=== PATIENT | male | born 1950 | race Two or more races ===

== ENCOUNTER 2024-03-02 18:01 | Inpatient (IN) | payer MEDICARE, BC, SELFPAY ==
[2024-03-02] VITALS (36 sets, daily range): BP systolic 68–209; BP diastolic 10–94; PULSE 59–127; RESP 14–99; O2SAT 77–100; BMI 48.4
--- NOTE | 2024-03-02 18:17 | PC.NURSE ---
180 pt brought to room 3 in cardiac arrest. [facility] states its time for another epi, pt has received 2 does of epi from [facility] already. 180 no pulse, and epi is in. pt came in with no pulse. 180 right ac 20 g placed. 180 blood sugar 463 mg/dl, no pulse, epi given, pt intubated with 7.5 , 25 @ teeth
--- NOTE | 2024-03-02 18:22 | XR_ITS ---
Examination: AP chest single view Technique: AP portable supine chest single view Exam date and time: March 02, 2024 1534 hrs. Indications: Shortness of breath chest pain beginning today Findings: Mild enlargement cardiac contour Prominent vascular congestion Endotracheal tube tip 4 cm above jimmie Impression: Mild heart failure Orogastric tube in the stomach, tip below the level of the film Tracheal tube tip 4 cm above jimmie
--- NOTE | 2024-03-02 18:27 | PD.EDCPR ---
ED CPR RME/HPI General Chief Complaint: Cardiac Arrest/CPR Stated Complaint: STAT Time Seen by Provider: 03/02/24 18:21 Arrival date/time: 03/02/24 18:01 RME / HPI RME / HPI narrative: DR. HOFFMANN MAIN ED EVALUATION: 73 year old male with past medical history significant for diabetes type 2, hypertension, dementia, and CVA one month ago presents to the Emergency Department as as a code blue, unknown downtime. Upon ED arrival: patient had no signs of life, patient was pulseless, patient was immediately transferred to a [facility], and CPR was continued. No history or ROS obtainable by patient due to unresponsiveness. At about 1820 hours, ROSC. Per , she left to a a [employer] constitution party at about 1300 hours, patient was in restroom and stated he was fine and did not need any help. Per , this is common from the patient, being stubborn and taking care of himself so she thought he would be okay. The returned home at 1730 hours and patient was still in the bathroom. She found the patient face down, legs around the toilet, conscious but unable to get up. The called granddaughter to help her get the patient up but patient refused and wanted to get up on his own even though he could not. EMS was called and they assisted but shortly after the patient became pale, cyanotic and unresponsive. Patient coded, prompting the paramedics to initiate the ACLS. unsure if the patient fell or hit head, or how long the patient was on the floor. reported increasing difficulty in assisting him with activities of daily living, including toileting and cleaning, due to his body weight (>300 lbs) and her physical limitations. Related Data Home Medications ?Medication ?Instructions ?Recorded ?Confirmed insulin aspart U-100 100 unit/mL 80 ea subcut QDAY 11/12/21 03/02/24 (3 mL) subcutaneous pen (Novolog FlexPen U-100 Insulin aspart) pioglitazone 30 mg tablet 1 tab PO QDAY 11/12/21 03/02/24 aspirin 81 mg tablet 81 mg PO QDAY 11/15/21 03/02/24 atorvastatin 10 mg tablet 1 tab PO HS 11/15/21 03/02/24 dutasteride 0.5 mg capsule 0.5 mg PO DAILY 11/15/21 03/02/24 insulin glargine 100 unit/mL (3 See Rx Instructions .Route .COMPLEX 11/15/21 03/02/24 mL) subcutaneous pen (Basaglar KwikPen U-100 Insulin) metoprolol succinate 50 mg 1 tab PO DAILY 11/15/21 03/02/24 tablet,extended release 24 hr ramipril 10 mg tablet 10 mg PO DAILY 11/15/21 03/02/24 clopidogrel 75 mg tablet 75 mg PO 1XD 03/02/24 03/02/24 doxazosin 8 mg tablet 8 mg PO QPM 03/02/24 03/02/24 ergocalciferol (vitamin D2) 25,000 50,000 unit PO QWEEK 03/02/24 03/02/24 unit capsule Allergies Allergy/AdvReac Type Severity Reaction Status Date / Time No Known Allergies Allergy Verified 11/15/21 11:37 Review of Systems Review of Systems ROS Unobtainable: unobtainable due to mental status and unobtainable due to medical condition Past Medical History Past Medical History CARDIAC: Positive Cardiac Disorders and Hypertension ENDOCRINE: Positive Endocrine Disorders and Diabetes Mellitus Type 2 Social History SMOKING STATUS: Never smoker SUBSTANCE USE: does not use ALCOHOL: Never ED Exam Narrative Physical exam: GENERAL APPEARANCE: unresponsive, was a code and ROSC shortly after arrival; tachypneic, was intubated VITALS: All vitals were reviewed and the pulse ox is 99%, intubated. HEENT: Normocephalic, atraumatic; mucous membranes pink, moist; oropharynx clear NECK: Supple LUNGS: tachypneic, intubated HEART: tachycardic after ROSC ABDOMEN: non distended; normal BS; soft, no tenderness, no guarding, no rebound; no masses, no organomegaly, no hernia BACK: no CVA tenderness EXTREMITIES: atraumatic; no edema NEUROLOGIC: unobtainable PSYCHIATRIC: unobtainable SKIN: warm, dry, normal color; no rashes Course Course Course Narrative: 1806: Intubation time. 1819: ROSC Quality Measures none Orders Category Date Time Status Engineering Faculty NOW Care 03/02/24 18:22 Completed EKG (ED ONLY) *Do not use* NOW Care 03/02/24 18:[address] head/brain wo con Stat Exams 03/02/24 19:08 Completed EKG (ED Only) Stat Exams 03/02/24 18:22 Stop Req XR chest 1V portable Stat Exams 03/02/24 18:22 Completed Arterial Blood Gas Urgent Lab 03/02/24 19:00 Completed B-Type Natriuretic Peptide Stat Lab 03/02/24 18:09 Completed Blood Culture (Lab) Stat Lab 03/02/24 18:55 Completed CBC Stat Lab 03/02/24 18:09 Completed CK [Creatine Kinase] Stat Lab 03/02/24 21:23 Completed Comprehensive Metabolic Panel Stat Lab 03/02/24 18:09 Completed Lactate (Lactic Acid) Stat Lab 03/02/24 18:09 Completed Lipase Stat Lab 03/02/24 18:09 Completed Magnesium Stat Lab 03/02/24 18:09 Completed Partial Thromboplastin Time Stat Lab 03/02/24 18:09 Completed Phosphorous Stat Lab 03/02/24 21:23 Completed Procalcitonin Stat Lab 03/02/24 18:09 Completed Prothrombin Time with INR Stat Lab 03/02/24 18:09 Completed Sputum Culture and Gram Stain Stat Lab 03/03/24 02:48 Completed Troponin I Stat Lab 03/02/24 18:09 Completed Urinalysis Stat Lab 03/02/24 18:26 Completed Urine Culture Stat Lab 03/02/24 18:26 Completed Midazolam/Ns 100 mg Ivpb [Versed Pf Inj in Ns Premix] Med 03/02/24 18:32 Discontinued 100 mg in 100 ml IV 1 mg/hr Norepinephrine/D5W 8mg/250ml [Levophed in D5W 8mg/250ml Med 03/02/24 19:06 Discontinued ] 8 mg in 250 ml IV 0.05 mcg/kg/min Norepinephrine/NS 16mg/250ml [Levophed in NS 16mg/250ml Med 03/02/24 19:01 Discontinued ] 16 mg in 250 ml IV .STK-MED Norepinephrine/NS 16mg/250ml [Levophed in NS 16mg/250ml Med 03/02/24 19:06 Discontinued ] 16 mg in 250 ml IV 0.05 mcg/kg/min Pantoprazole Inj [Protonix Inj] Med 03/02/24 18:23 Discontinued 80 mg IV X1 ONE Pantoprazole/Ns 80Mg IV Premix [Protonix/NS 80mg IV Med 03/02/24 18:23 Discontinued Premix] 80 mg in 100 ml IV Q10H Vital Signs Vital signs: Vital Signs Pulse Rate 127 H 03/02/24 18:15 Respiratory Rate 17 03/02/24 18:15 Blood Pressure 138/61 H 03/02/24 18:15 Pulse Oximetry (%) 100 03/02/24 18:15 Oxygen Delivery Method Mechanical Ventilation 03/02/24 18:15 Procedures -ED Intubation Time out performed: Yes Laryngoscope: fiber optic video scope Assist Device Used: fiber optic device ET Tube Size: 7.5 ET Tube Uncuffed: No Tube Secured Depth (cm): 25 Tube Secured Location: other (gums) Patient Tolerated Procedure: well and no complications Intubation Complications: none Cardiac Arrest / CPR MDM Narrative MDM Narrative:: IHelen am scribing for and in the presence of Dr. Hoffmann. Patient data External records reviewed:: [facility] previous records (Reviewed colonoscopy note by Dr. Sheehan dated 11/15/21.) and EMS form Clinical information provided by:: EMS and spouse Social determinants that could affect healthcare access:: none Patient has the following chronic illnesses:: Hypertension, hyperlipidemia, and diabetes type 1. How is presenting disease/condition affected by chronic disease/condition?: exacerbated by Evaluation data The following diagnostics were reviewed and interpreted by me:: lab results and radiology exam(s) Lab and/or radiology exams considered but not ordered:: none Interpretation Summary: Procedure(s): CT head/brain wo con Accession Number(s): [id number] cc: Oswaldo Kaplan MD; Angelique Hoffmann MD; Alfred Mcneil MD~ Examination: CT brain head without contrast. 2-D sagittal coronal reconstructions Date and time of exam:March 02, 20242007 hrs. Indications: Altered mental status onset today CTDI: vol (mGy):8.01 DLP: (mGycm):1534 Technique: Multiple CT axial sections of the brain have been obtained, 5 mm slice thickness. Contrast has not been administered. 2-D sagittal, coronal reconstructions have been obtained Low dose protocols were performed. One or more of the following dose reduction techniques were used; automated exposure control, adjustment of the mA and/or KV according to patient size, use of iterative reconstruction technique. Findings: No significant ventricular enlargement. Intra-axial or extra-axial hemorrhage density is not seen. No mass effect or midline shift Basal cisterns are not remarkable. Fourth ventricle is midline. Cranial vault intact. Impression: Negative for acute hemorrhage, mass effect or midline shift Advise clinical correlation and follow-up accordingly Dictated By: Oswaldo Kaplan MD Procedure(s): XR chest 1V portable Accession Number(s): [id number] cc: Oswaldo Kaplan MD; Angelique Hoffmann MD; Alfred Mcneil MD~ Examination: AP chest single view Technique: AP portable supine chest single view Exam date and time: March 02, 2024 1534 hrs. Indications: Shortness of breath chest pain beginning today Findings: Mild enlargement cardiac contour Prominent vascular congestion Endotracheal tube tip 4 cm above jimmie Impression: Mild heart failure Orogastric tube in the stomach, tip below the level of the film Tracheal tube tip 4 cm above jimmie Dictated By: Oswaldo Kaplan MD Medications / Prescriptions Medications or Prescriptions considered but not ordered:: none Medication administrations:: Medication Administration History Discontinued Medications Acetaminophen (Acetaminophen 325 Mg Tablet) 650 mg PO Q6H PRN PRN Reason: Fever >100.4 - pain 1-3 Stop: 04/01/24 20:51 Artificial Tears (Artificial Tears 225 Drop/15 Ml Btl) 1 drop BOTH EYES Q4HR PRN PRN Reason: Dry eyes Stop: 04/03/24 11:05 Bumetanide (Bumetanide Inj 0.25 Mg/Ml Vial 4 Ml) 2 mg IVP NOW ONE Stop: 03/03/24 11:31 Last Admin: 03/03/24 11:41 Dose: 2 mg Documented By: AT Dextrose (Dextrose 50%-Water Inj 50 Ml Syringe) 25 ml IV Q15MIN PRN PRN Reason: BG 50-70 responsive npo pt Stop: 04/01/24 21:12 Dextrose (Dextrose 50%-Water Inj 50 Ml Syringe) 50 ml IV Q15MIN PRN PRN Reason: BG <50 OR BG <70 & pt unresponsive Stop: 04/01/24 21:12 Fentanyl Citrate (Fentanyl Cit Inj 50 Mcg/Ml Amp 2ml) 50 mcg IVP X1 ONE Stop: 03/04/24 12:21 Last Admin: 03/04/24 12:33 Dose: 50 mcg Documented By: AT Furosemide (Furosemide Inj 10 Mg/Ml 4ml Vial) 40 mg IVP X1 ONE Stop: 03/03/24 03:18 Last Admin: 03/03/24 03:24 Dose: 40 mg Documented By: CLT Glucagon (Glucagon Inj 1 Mg Vial) 1 mg IM Q15MIN PRN PRN Reason: BG <70, and no IV access Heparin Sodium (Porcine) (Heparin Sod Inj 5000 Unit/Ml Vial) 5,000 unit SC Q8HR VLAD Stop: 03/16/24 21:59 Hydrocortisone Sodium Succinate (Hydrocortisone Sod Succ Inj 100 Mg Vial) 50 mg IV Q6HR VLAD Stop: 04/02/24 11:59 Last Admin: 03/04/24 06:21 Dose: 50 mg Documented By: Admin: 03/03/24 23:36 Dose: 50 mg Documented By: Admin: 03/03/24 18:05 Dose: 50 mg Documented By: Admin: 03/03/24 11:19 Dose: 50 mg Documented By: AT Pantoprazole Sodium (Protonix/Ns 80mg Iv Premix) 80 mg in 100 mls @ 10 mls/hr IV Q10H VLAD Stop: 03/05/24 16:22 Last Admin: 03/04/24 11:11 Dose: Not Given Documented By: AT Non-Admin Reason: Discontinued Admin: 03/03/24 23:37 Dose: 10 mls/hr Documented By: Infusion: 03/03/24 23:23 Dose: Infused Documented By: Admin: 03/03/24 13:23 Dose: 10 mls/hr Documented By: Infusion: 03/03/24 13:23 Dose: Infused Documented By: Admin: 03/03/24 04:31 Dose: 10 mls/hr Documented By: Infusion: 03/03/24 04:31 Dose: Infused Documented By: Admin: 03/02/24 18:50 Dose: 10 mls/hr Documented By: TC Midazolam HCl (Versed Pf Inj In Ns Premix) 100 mg in 100 mls @ 1 mls/hr IV .Q24H PRN; Protocol PRN Reason: PER PROTOCOL Stop: 03/07/24 18:31 Last Titration: 03/03/24 00:00 Dose: 0 mg/hr, 0 mls/hr Documented By: Titration: 03/02/24 22:02 Dose: 10 mg/hr, 10 mls/hr Documented By: Titration: 03/02/24 21:20 Dose: 10 mg/hr, 10 mls/hr Documented By: Titration: 03/02/24 20:54 Dose: 3 mg/hr, 3 mls/hr Documented By: Titration: 03/02/24 20:00 Dose: 2 mg/hr, 2 mls/hr Documented By: Admin: 03/02/24 18:37 Dose: 1 mg/hr, 1 mls/hr Documented By: AM Co-signed By: NANY Norepinephrine/Dextrose (Levophed In D5w 8mg/250ml) 8 mg in 250 mls @ 0 mls/hr IV PRN; Protocol PRN Reason: PER PROTOCOL Stop: 04/01/24 19:05 Norepinephrine Bitartrate (Levophed In Ns 16mg/250ml) 16 mg in 250 mls @ 6.379 mls/hr IV .Q24H PRN; Protocol PRN Reason: PER protocol Stop: 04/01/24 19:05 Last Titration: 03/04/24 12:00 Dose: 0 mcg/kg/min, 0 mls/hr Documented By: Titration: 03/04/24 11:00 Dose: 0.1 mcg/kg/min, 12.757 mls/hr Documented By: Admin: 03/04/24 10:10 Dose: 0.1 mcg/kg/min, 12.757 mls/hr Documented By: Titration: 03/04/24 09:39 Dose: Infused Documented By: Titration: 03/04/24 09:00 Dose: 0.1 mcg/kg/min, 12.757 mls/hr Documented By: Titration: 03/04/24 08:47 Dose: 0.1 mcg/kg/min, 12.757 mls/hr Documented By: Titration: 03/04/24 08:00 Dose: 0.12 mcg/kg/min, 15.309 mls/hr Documented By: Titration: 03/04/24 07:00 Dose: 0.12 mcg/kg/min, 15.309 mls/hr Documented By: Titration: 03/04/24 06:00 Dose: 0.12 mcg/kg/min, 15.309 mls/hr Documented By: Titration: 03/04/24 05:01 Dose: 0.12 mcg/kg/min, 15.309 mls/hr Documented By: Titration: 03/04/24 05:00 Dose: 0.17 mcg/kg/min, 21.687 mls/hr Documented By: Titration: 03/04/24 04:00 Dose: 0.12 mcg/kg/min, 15.309 mls/hr Documented By: Titration: 03/04/24 03:00 Dose: 0.14 mcg/kg/min, 17.86 mls/hr Documented By: Titration: 03/04/24 02:00 Dose: 0.16 mcg/kg/min, 20.412 mls/hr Documented By: Titration: 03/04/24 01:00 Dose: 0.16 mcg/kg/min, 20.412 mls/hr Documented By: Titration: 03/04/24 00:00 Dose: 0.16 mcg/kg/min, 20.412 mls/hr Documented By: Titration: 03/03/24 22:00 Dose: 0.16 mcg/kg/min, 20.412 mls/hr Documented By: Titration: 03/03/24 21:00 Dose: 0.16 mcg/kg/min, 20.412 mls/hr Documented By: Titration: 03/03/24 20:00 Dose: 0.16 mcg/kg/min, 20.412 mls/hr Documented By: Admin: 03/03/24 19:35 Dose: 0.16 mcg/kg/min, 20.412 mls/hr Documented By: Titration: 03/03/24 19:35 Dose: Infused Documented By: Titration: 03/03/24 19:00 Dose: 0.16 mcg/kg/min, 20.412 mls/hr Documented By: Titration: 03/03/24 18:00 Dose: 0.16 mcg/kg/min, 20.412 mls/hr Documented By: Titration: 03/03/24 17:00 Dose: 0.16 mcg/kg/min, 20.412 mls/hr Documented By: Titration: 03/03/24 16:24 Dose: 0.18 mcg/kg/min, 22.963 mls/hr Documented By: Titration: 03/03/24 16:00 Dose: 0.2 mcg/kg/min, 25.515 mls/hr Documented By: Titration: 03/03/24 15:00 Dose: 0.2 mcg/kg/min, 25.515 mls/hr Documented By: Titration: 03/03/24 14:45 Dose: 0.22 mcg/kg/min, 28.066 mls/hr Documented By: Titration: 03/03/24 14:30 Dose: 0.24 mcg/kg/min, 30.618 mls/hr Documented By: Titration: 03/03/24 14:20 Dose: 0.26 mcg/kg/min, 33.169 mls/hr Documented By: Titration: 03/03/24 14:15 Dose: 0.28 mcg/kg/min, 35.72 mls/hr Documented By: Titration: 03/03/24 14:05 Dose: 0.3 mcg/kg/min, 38.272 mls/hr Documented By: Titration: 03/03/24 14:00 Dose: 0.32 mcg/kg/min, 40.823 mls/hr Documented By: Titration: 03/03/24 13:00 Dose: 0.34 mcg/kg/min, 43.375 mls/hr Documented By: Admin: 03/03/24 12:00 Dose: 0.36 mcg/kg/min, 45.926 mls/hr Documented By: Titration: 03/03/24 12:00 Dose: Infused Documented By: Titration: 03/03/24 11:30 Dose: 0.38 mcg/kg/min, 48.478 mls/hr Documented By: Titration: 03/03/24 11:00 Dose: 0.4 mcg/kg/min, 51.029 mls/hr Documented By: Titration: 03/03/24 10:58 Dose: 0.4 mcg/kg/min, 51.029 mls/hr Documented By: Titration: 03/03/24 10:00 Dose: 0.42 mcg/kg/min, 53.581 mls/hr Documented By: Titration: 03/03/24 09:52 Dose: 0.44 mcg/kg/min, 56.132 mls/hr Documented By: Titration: 03/03/24 09:34 Dose: 0.46 mcg/kg/min, 58.684 mls/hr Documented By: Titration: 03/03/24 09:00 Dose: 0.48 mcg/kg/min, 61.235 mls/hr Documented By: Admin: 03/03/24 08:00 Dose: 0.48 mcg/kg/min, 61.235 mls/hr Documented By: Titration: 03/03/24 08:00 Dose: Infused Documented By: Titration: 03/03/24 07:00 Dose: 0.48 mcg/kg/min, 61.235 mls/hr Documented By: Titration: 03/03/24 06:45 Dose: 0.46 mcg/kg/min, 58.684 mls/hr Documented By: Titration: 03/03/24 06:15 Dose: 0.44 mcg/kg/min, 56.132 mls/hr Documented By: Titration: 03/03/24 06:00 Dose: 0.42 mcg/kg/min, 53.581 mls/hr Documented By: Titration: 03/03/24 05:00 Dose: 0.4 mcg/kg/min, 51.029 mls/hr Documented By: Titration: 03/03/24 04:15 Dose: 0.4 mcg/kg/min, 51.029 mls/hr Documented By: Titration: 03/03/24 04:00 Dose: 0.42 mcg/kg/min, 53.581 mls/hr Documented By: Admin: 03/03/24 03:43 Dose: 0.44 mcg/kg/min, 56.132 mls/hr Documented By: Titration: 03/03/24 03:43 Dose: Infused Documented By: Titration: 03/03/24 03:00 Dose: 0.44 mcg/kg/min, 56.132 mls/hr Documented By: Titration: 03/03/24 02:30 Dose: 0.44 mcg/kg/min, 56.132 mls/hr Documented By: Titration: 03/03/24 02:15 Dose: 0.46 mcg/kg/min, 58.684 mls/hr Documented By: Titration: 03/03/24 02:00 Dose: 0.48 mcg/kg/min, 61.235 mls/hr Documented By: Titration: 03/03/24 01:00 Dose: 0.5 mcg/kg/min, 63.787 mls/hr Documented By: Titration: 03/03/24 00:00 Dose: 0.5 mcg/kg/min, 63.787 mls/hr Documented By: Admin: 03/02/24 23:55 Dose: 0.5 mcg/kg/min, 63.787 mls/hr Documented By: Titration: 03/02/24 23:55 Dose: Infused Documented By: Titration: 03/02/24 23:00 Dose: 0.5 mcg/kg/min, 63.787 mls/hr Documented By: Titration: 03/02/24 22:02 Dose: 0.5 mcg/kg/min, 63.787 mls/hr Documented By: Titration: 03/02/24 21:37 Dose: 0.5 mcg/kg/min, 63.787 mls/hr Documented By: Admin: 03/02/24 19:15 Dose: 0.25 mcg/kg/min, 31.893 mls/hr Documented By: TC Norepinephrine Bitartrate (Levophed In Ns 16mg/250ml) Confirm Administered Dose 16 mg in 250 mls @ ud IV .STK-MED ONE Stop: 03/02/24 19:02 Last Admin: 03/02/24 19:11 Dose: 63.8 mls/hr Documented By: AM Propofol (Diprivan Ivpb) 1,000 mg in 100 mls @ 4.082 mls/hr IV .Q24H PRN; Protocol PRN Reason: PER PROTOCOL Stop: 04/01/24 21:05 Last Titration: 03/03/24 07:00 Dose: Infused Documented By: Titration: 03/03/24 06:00 Dose: 35 mcg/kg/min, 28.576 mls/hr Documented By: Titration: 03/03/24 05:00 Dose: 35 mcg/kg/min, 28.576 mls/hr Documented By: Titration: 03/03/24 04:00 Dose: 35 mcg/kg/min, 28.576 mls/hr Documented By: Titration: 03/03/24 03:43 Dose: 35 mcg/kg/min, 28.576 mls/hr Documented By: Titration: 03/03/24 03:30 Dose: 30 mcg/kg/min, 24.494 mls/hr Documented By: Titration: 03/03/24 03:17 Dose: 30 mcg/kg/min, 24.494 mls/hr Documented By: Titration: 03/03/24 03:00 Dose: 25 mcg/kg/min, 20.412 mls/hr Documented By: Admin: 03/03/24 02:55 Dose: 25 mcg/kg/min, 20.412 mls/hr Documented By: Titration: 03/03/24 02:55 Dose: Infused Documented By: Titration: 03/03/24 02:00 Dose: 25 mcg/kg/min, 20.412 mls/hr Documented By: Titration: 03/03/24 01:00 Dose: 25 mcg/kg/min, 20.412 mls/hr Documented By: Titration: 03/03/24 00:00 Dose: 25 mcg/kg/min, 20.412 mls/hr Documented By: Admin: 03/02/24 21:09 Dose: 10 mcg/kg/min, 8.165 mls/hr Documented By: TC Co-signed By: DB Vancomycin HCl 2,000 mg/ (Sodium Chloride) 500 mls @ 150 mls/hr IV X1 ONE Stop: 03/03/24 00:29 Last Admin: 03/02/24 22:39 Dose: 150 mls/hr Documented By: CLT Piperacillin/Tazobactam/Dextrose (Zosyn) 3.375 gm in 50 mls @ 12.5 mls/hr IV Q8HR VLAD Stop: 03/10/24 06:29 Last Admin: 03/04/24 06:21 Dose: 12.5 mls/hr Documented By: Infusion: 03/04/24 02:06 Dose: Infused Documented By: Admin: 03/03/24 22:06 Dose: 12.5 mls/hr Documented By: Infusion: 03/03/24 17:22 Dose: Infused Documented By: Admin: 03/03/24 13:22 Dose: 12.5 mls/hr Documented By: Infusion: 03/03/24 10:29 Dose: Infused Documented By: Admin: 03/03/24 06:29 Dose: 12.5 mls/hr Documented By: CLT Lactated Ringer's (Lactated Ringers) 1,000 mls @ 999 mls/hr IV .Q1H1M ONE Stop: 03/02/24 22:16 Last Infusion: 03/03/24 01:00 Dose: Infused Documented By: Admin: 03/02/24 23:15 Dose: 999 mls/hr Documented By: CLT Piperacillin/Tazobactam/Dextrose (Zosyn) 3.375 gm in 50 mls @ 100 mls/hr IV X1 ONE Stop: 03/02/24 22:14 Last Admin: 03/02/24 22:42 Dose: 100 mls/hr Documented By: CLT Lactated Ringer's (Lactated Ringers) 1,000 mls @ 250 mls/hr IV .Q4H ONE Stop: 03/03/24 03:44 Last Infusion: 03/03/24 02:15 Dose: 0 mls/hr Documented By: Admin: 03/03/24 01:25 Dose: 250 mls/hr Documented By: CLT Fentanyl Citrate (Sublimaze Inj 2,500 Mcg/250 Ml Bag) 2,500 mcg in 250 mls @ 2.5 mls/hr IV .Q24H PRN; Protocol PRN Reason: PER PROTOCOL Stop: 03/07/24 23:37 Last Titration: 03/04/24 11:00 Dose: Infused Documented By: Titration: 03/04/24 10:00 Dose: 125 mcg/hr, 12.5 mls/hr Documented By: Titration: 03/04/24 09:00 Dose: 125 mcg/hr, 12.5 mls/hr Documented By: Titration: 03/04/24 08:00 Dose: 75 mcg/hr, 7.5 mls/hr Documented By: Titration: 03/04/24 07:00 Dose: 75 mcg/hr, 7.5 mls/hr Documented By: Titration: 03/04/24 06:00 Dose: 25 mcg/hr, 2.5 mls/hr Documented By: Titration: 03/04/24 05:36 Dose: 25 mcg/hr, 2.5 mls/hr Documented By: Titration: 03/04/24 05:00 Dose: 25 mcg/hr, 2.5 mls/hr Documented By: Titration: 03/04/24 04:00 Dose: 25 mcg/hr, 2.5 mls/hr Documented By: Titration: 03/04/24 03:00 Dose: 25 mcg/hr, 2.5 mls/hr Documented By: Titration: 03/04/24 02:00 Dose: 25 mcg/hr, 2.5 mls/hr Documented By: Titration: 03/04/24 01:00 Dose: 25 mcg/hr, 2.5 mls/hr Documented By: Titration: 03/04/24 00:00 Dose: 25 mcg/hr, 2.5 mls/hr Documented By: Titration: 03/03/24 23:00 Dose: 25 mcg/hr, 2.5 mls/hr Documented By: Titration: 03/03/24 22:00 Dose: 25 mcg/hr, 2.5 mls/hr Documented By: Titration: 03/03/24 21:00 Dose: 25 mcg/hr, 2.5 mls/hr Documented By: Titration: 03/03/24 20:00 Dose: 25 mcg/hr, 2.5 mls/hr Documented By: Titration: 03/03/24 19:00 Dose: 25 mcg/hr, 2.5 mls/hr Documented By: Titration: 03/03/24 18:00 Dose: 25 mcg/hr, 2.5 mls/hr Documented By: Titration: 03/03/24 17:03 Dose: 25 mcg/hr, 2.5 mls/hr Documented By: Titration: 03/03/24 10:58 Dose: 0 mcg/hr, 0 mls/hr Documented By: Titration: 03/03/24 10:31 Dose: 125 mcg/hr, 12.5 mls/hr Documented By: Titration: 03/03/24 10:00 Dose: 175 mcg/hr, 17.5 mls/hr Documented By: Titration: 03/03/24 09:00 Dose: 175 mcg/hr, 17.5 mls/hr Documented By: Titration: 03/03/24 08:00 Dose: 175 mcg/hr, 17.5 mls/hr Documented By: Titration: 03/03/24 07:00 Dose: 175 mcg/hr, 17.5 mls/hr Documented By: Titration: 03/03/24 06:00 Dose: 175 mcg/hr, 17.5 mls/hr Documented By: Titration: 03/03/24 05:00 Dose: 175 mcg/hr, 17.5 mls/hr Documented By: Titration: 03/03/24 04:00 Dose: 175 mcg/hr, 17.5 mls/hr Documented By: Titration: 03/03/24 03:00 Dose: 175 mcg/hr, 17.5 mls/hr Documented By: Titration: 03/03/24 02:45 Dose: 175 mcg/hr, 17.5 mls/hr Documented By: Titration: 03/03/24 02:00 Dose: 125 mcg/hr, 12.5 mls/hr Documented By: Titration: 03/03/24 01:00 Dose: 125 mcg/hr, 12.5 mls/hr Documented By: Titration: 03/03/24 00:00 Dose: 125 mcg/hr, 12.5 mls/hr Documented By: Admin: 03/02/24 23:56 Dose: 125 mcg/hr, 12.5 mls/hr Documented By: CLT Co-signed By: BB Midazolam HCl (Versed Pf Inj In Ns Premix) 100 mg in 100 mls @ 1 mls/hr IV .Q24H PRN; Protocol PRN Reason: PER PROTOCOL Stop: 03/07/24 18:31 Fentanyl Citrate (Sublimaze Inj 2,500 Mcg/250 Ml Bag) 2,500 mcg in 250 mls @ 2.5 mls/hr IV .Q24H PRN; Protocol PRN Reason: PER PROTOCOL Stop: 03/07/24 23:37 Last Titration: 03/04/24 12:54 Dose: 0 mcg/hr, 0 mls/hr Documented By: Titration: 03/04/24 12:19 Dose: 200 mcg/hr, 20 mls/hr Documented By: Titration: 03/04/24 12:00 Dose: 175 mcg/hr, 17.5 mls/hr Documented By: Admin: 03/04/24 11:17 Dose: 125 mcg/hr, 12.5 mls/hr Documented By: AT Co-signed By: AG Midazolam HCl (Versed Pf Inj In Ns Premix) 100 mg in 100 mls @ 1 mls/hr IV .Q24H PRN; Protocol PRN Reason: PER PROTOCOL Stop: 03/07/24 18:31 Propofol (Diprivan Ivpb) 1,000 mg in 100 mls @ 4.082 mls/hr IV .Q24H PRN; Protocol PRN Reason: PER PROTOCOL Stop: 04/02/24 00:59 Last Titration: 03/03/24 10:58 Dose: 0 mcg/kg/min, 0 mls/hr Documented By: Titration: 03/03/24 10:00 Dose: 15 mcg/kg/min, 12.247 mls/hr Documented By: Titration: 03/03/24 09:45 Dose: 20 mcg/kg/min, 16.329 mls/hr Documented By: Titration: 03/03/24 09:00 Dose: 25 mcg/kg/min, 20.412 mls/hr Documented By: Titration: 03/03/24 08:00 Dose: 30 mcg/kg/min, 24.494 mls/hr Documented By: Titration: 03/03/24 07:00 Dose: 35 mcg/kg/min, 28.576 mls/hr Documented By: Admin: 03/03/24 06:58 Dose: 35 mcg/kg/min, 28.576 mls/hr Documented By: AT Co-signed By: CLT Vasopressin/Sodium Chloride (Vasostrict/Ns Ivpb) 20 unit in 100 mls @ 9 mls/hr IV .Q11H7M PRN; Protocol PRN Reason: PER PROTOCOL Stop: 04/02/24 07:17 Last Titration: 03/04/24 12:00 Dose: Infused Documented By: Admin: 03/03/24 16:24 Dose: 0.03 unit/min, 9 mls/hr Documented By: Titration: 03/03/24 16:24 Dose: Infused Documented By: Admin: 03/03/24 07:30 Dose: 0.03 unit/min, 9 mls/hr Documented By: AT Vancomycin HCl (Vancomycin/Water 1250 Mg Ivpb) 250 mls @ 120 mls/hr IV DAILY@2200 VLAD Stop: 03/10/24 21:59 Last Admin: 03/03/24 22:06 Dose: 120 mls/hr Documented By: CLT Vancomycin/Sodium Chloride (Vancomycin/Ns 750 Mg Ivpb) 750 mg in 150 mls @ 120 mls/hr IV DAILY@2200 VLAD; Protocol Stop: 03/11/24 21:59 Fentanyl Citrate (Sublimaze Inj 2,500 Mcg/250 Ml Bag) 2,500 mcg in 250 mls @ 17.5 mls/hr IV .[id number] PRN; Protocol PRN Reason: Per Protocol Stop: 03/09/24 11:52 Insulin Human Lispro (Insulin Lispro (Admelog) 1 Unit/0.01 Ml Unit) 0 unit SC Q6HR VLAD; Protocol Stop: 04/02/24 00:00 Last Admin: 03/03/24 00:03 Dose: 5 unit Documented By: CLT Co-signed By: MARIA L Insulin Human Lispro (Insulin Lispro (Admelog) 1 Unit/0.01 Ml Unit) 0 unit SC Q6HR VLAD; Protocol Stop: 04/02/24 00:00 Last Admin: 03/04/24 06:19 Dose: 10 unit Documented By: CLT Co-signed By: JOIE Comments: Admin: 03/03/24 23:42 Dose: 8 unit Documented By: ALLAN Co-signed By: JOIE Comments: Admin: 03/03/24 18:06 Dose: 10 unit Documented By: AT Co-signed By: Admin: 03/03/24 11:19 Dose: 10 unit Documented By: AT Co-signed By: Admin: 03/03/24 06:12 Dose: 16 unit Documented By: CLT Co-signed By: JOIE Lorazepam (Lorazepam 2 Mg/Ml Vial) 1 mg IVP Q2HR [facility] Stop: 03/09/24 11:59 Last Admin: 03/04/24 11:16 Dose: 1 mg Documented By: AT Ondansetron HCl (Ondansetron Inj 2 Mg/Ml Inj 2 Ml) 4 mg IV Q6H PRN; Protocol PRN Reason: NAUSEA OR VOMITING Stop: 04/01/24 20:51 Ondansetron HCl (Ondansetron Odt 4 Mg Tabrap) 4 mg PO Q2HR PRN PRN Reason: NAUSEA OR VOMITING Stop: 04/03/24 11:06 Pantoprazole Sodium (Pantoprazole Inj 40 Mg Vial) 80 mg IV X1 ONE Stop: 03/02/24 18:24 Last Admin: 03/02/24 18:43 Dose: 80 mg Documented By: AM Pantoprazole Sodium (Pantoprazole Inj 40 Mg Vial) 40 mg IVP QDAY [facility] Stop: 04/02/24 08:59 Pharmacy Consult (Vancomycin Pharmacy To Dose 1 Each Each) 1 each IV QDAY PRN PRN Reason: CONSULT Stop: 04/02/24 08:59 Scopolamine (Scopolamine 1 Mg Tdsy) 1 mg TOP Q3D [facility] Stop: 04/03/24 11:14 Last Admin: 03/04/24 11:16 Dose: 1 mg Documented By: AT Sodium Polystyrene Sulfonate (Sod Polystyrene Sulfon Susp 15 Gm/60 Ml Btl) 30 gm PO X1 ONE Stop: 03/04/24 06:49 Last Admin: 03/04/24 07:03 Dose: 30 gm Documented By: AT see above Consultations Consultation(s) initiated? (list below): Yes Consultation #1 (Physician, Specialty, Details): Discussed test HPI, PMHx, lab, radiology results and/or management with hospitalist Dr. Lord. Will admit for further evaluation and management. Accepts patient for admission. Time: 20:40 Diagnosis Cardiac arrest differential diagnosis: acute massive pulmonary embolism, acute respiratory failure, acute myocardial infarction, cardiac arrest and sudden cardiac Most likely diagnosis given after review of the tests above:: Cardiac arrest Admission Indicated Admission indicated?: indicated Admission Request Was there a request for admission?: Yes Admission Attestation Admission request attestation: Discussed case with [] from Hospitalist service regarding admission. Discussed patients ED course, exam findings, labs, and radiology results. The Hospitalist [agrees,declines] to accept the patient for admission. Disposition Plan Disposition Plan: Admit Critical Care Time Critical Care Time Critical Care Time: Yes Total Critical Care Time (min.): 60 Attestation: The high probability of sudden, clinically significant deterioration in the patient?s condition required the highest level of my preparedness to intervene urgently. The services I provided to this patient were to treat and/or prevent clinically significant deterioration. Services included the following: chart data review, reviewing nursing notes and/or old charts, documentation time, bath design sales consultant collaboration regarding findings and treatment options, medication orders and management, direct patient care, vital sign assessments and ordering, interpreting and reviewing diagnostic studies and lab tests. Aggregate critical care time includes only time during which I was engaged in work directly related to the patient?s care, as described above, whether at bedside or elsewhere in the Emergency Department. It did not include time spent performing other reported procedures or the services of residents, students, nurses or physician assistants. Discharge Plan Plan Patient Disposition: Admit Acute Care w/in Hospital Problem List Clinical Impression: Cardiac arrest, Acute respiratory failure
[2024-03-02 18:31] LABS: Lactate (Lactic Acid) 11.2 mMol/L (0.4-2.0)
[2024-03-02 18:33] LABS: Basophils # (Auto) 0.1 Thou/mm3 (0.0-0.2); Basophils % (Auto) 0 % (0-2.5); Eosinophils % (Auto) 0 % (0-10); Hemoglobin 12.7 g/dL (13.5-16.0); Immature Granulocytes % (Auto) 2 % (0-0); Immature Granulocytes Auto 0.56 Thou/mm3 (0.00-0.00); Lymphocytes # (Auto) 2.8 Thou/mm3 (1.0-4.8); Lymphocytes % (Auto) 11 % (10-50); Mean Corpuscular HGB Conc 31.8 g/dl (31.0-37.0); Mean Corpuscular Hemoglobin 29.9 pg (25.0-35.0); Mean Corpuscular Volume 94 fL (80-100); Monocytes # (Auto) 2.1 Thou/mm3 (0.0-0.8); Monocytes % (Auto) 8 % (0-12); Neutrophils # (Auto) 20.2 Thou/mm3 (1.8-7.7); Neutrophils % (Auto) 79 % (37-80); Nucleated Red Blood Cell # 0.05 Thou/mm3 (0.00-0.00); Nucleated Red Blood Cell % 0 /100 WBC (0); Platelet Count 375 Thou/mm3 (140-440); RDW Standard Deviation 48.4 fL (35.1-43.9); Red Blood Count 4.25 Miln/mm3 (4.50-5.90); White Blood Count 25.7 Thou/mm3 (3.8-10.6)
[2024-03-02] MEDS: MIDAZOLAM/NS 100 MG IVPB 100 MG/100 ML BAG IV (18:37)
[2024-03-02 18:41] LABS: Collection Type, Urine Clean Catch
[2024-03-02] MEDS: PANTOPRAZOLE INJ 40 MG VIAL 80 MG IV (18:43)
[2024-03-02 18:47] LABS: Bilirubin,Urine Negative (Negative); Blood,Urine Negative (Negative); Clarity,Urine Clear (Clear/Hazy); Color,Urine Lt-Yellow (Lt Yel-Yel); Glucose, Urine Negative (Negative); Ketones,Urine Negative (Negative); Leukocyte Esterase,Urine Positive (Negative); Nitrite,Urine Negative (Negative); Protein,Urine 1+ (Neg - Trace); RBC,Urine 14 /hpf (0-3); Specific Gravity,Urine 1.015 (1.001-1.035); Squamous Epithelial Cell,Urine < 1 /hpf (0-5); Urobilinogen,Urine Negative mg/dL (0.0-1.0); WBC,Urine 108 /hpf (0-5)
[2024-03-02 18:48] LABS: INR 1.1 (0.9-1.3); Partial Thromboplastin Time 30.8 Seconds (22.0-36.0); Prothrombin Time 12.4 Seconds (9.0-12.2)
[2024-03-02 18:50] LABS: B-Type Natriuretic Peptide 73 pg/mL (0-100)
[2024-03-02] MEDS: PANTOPRAZOLE/NS 80MG IV PREMIX 80 MG/100 ML BAG 10 MG IV (18:50)
[2024-03-02 18:55] LABS: Alanine Aminotransferase 199 U/L (10-49); Albumin, Serum 4.3 gm/dL (3.4-4.8); Albumin/Globulin Ratio 1.6 (1.2-2.2); Alkaline Phosphatase 101 U/L (46-116); Anion Gap 19 (7-16); Aspartate Amino Transferase 296 U/L (0-34); BUN/Creatinine Ratio 12 Ratio (12-20); Bilirubin,Total 0.4 mg/dL (0.3-1.2); Blood Urea Nitrogen 26 mg/dL (9-23); Calcium 9.4 mg/dL (8.3-10.6); Calcium (Corrected) 9.4 mg/dL (8.5-10.1); Carbon Dioxide 16.2 mMol/L (20.0-31.0); Chloride 99 mMol/L (98-107); Creatinine (Component) 2.1 mg/dL (0.6-1.3); Globulin 2.7 gm/dL (2.3-3.5); Lipase 30 U/L (12-53); Magnesium 2.5 mg/dL (1.6-2.6); Osmolality,Calculated 292 (275-295); Potassium 4.1 mMol/L (3.4-5.1); Sodium 134 mMol/L (136-145); Troponin I 0.033 ng/mL (0.0-0.045); eGFR 32 See Note
[2024-03-02 18:56] LABS: Glucose 450 mg/dL (74-106)
[2024-03-02 18:59] LABS: Procalcitonin 0.16 ng/ml (0.0-0.49)
--- NOTE | 2024-03-02 18:59 | PC.NURSE ---
PANTOPRAZOLE WAS GIVEN IV PUSH AND DRIP WAS STARTED.
[2024-03-02 19:07] LABS: Allen Test Performed/OK; Base Excess -16 (-3-3); HCO3 15 mEq/L (20-26); Inspired Oxygen, FIO2 100 %; O2 Saturation 100 % (91-98); PCO2 56 mmHg (32.0-48.0); PO2 323 mmHg (83-108); Puncture Site Right Radial
[2024-03-02 19:08] LABS: pH, Arterial 7.04 (7.35-7.45)
--- NOTE | 2024-03-02 19:08 | XR_ITS ---
Examination: CT brain head without contrast. 2-D sagittal coronal reconstructions Date and time of exam:March 02, 20242007 hrs. Indications: Altered mental status onset today CTDI: vol (mGy):8.01 DLP: (mGycm):1534 Technique: Multiple CT axial sections of the brain have been obtained, 5 mm slice thickness. Contrast has not been administered. 2-D sagittal, coronal reconstructions have been obtained Low dose protocols were performed. One or more of the following dose reduction techniques were used; automated exposure control, adjustment of the mA and/or KV according to patient size, use of iterative reconstruction technique. Findings: No significant ventricular enlargement. Intra-axial or extra-axial hemorrhage density is not seen. No mass effect or midline shift Basal cisterns are not remarkable. Fourth ventricle is midline. Cranial vault intact. Impression: Negative for acute hemorrhage, mass effect or midline shift Advise clinical correlation and follow-up accordingly
[2024-03-02] MEDS: Norepinephrine/NS 16mg/250ml 16 MG/250 ML BAG 63.8 MG IV (19:11)
[2024-03-02] MEDS: Norepinephrine/NS 16mg/250ml 16 MG/250 ML BAG 31.893 MG IV (19:15)
--- NOTE | 2024-03-02 19:48 | PD.EVENT ---
Documentation for date of: 03/02/24 Event Note Event Note: The patient is a 73-year-old male with a medical history of hypertension, diabetes, dementia, and CVA one month ago, who presented to ER s/p cardiac arrest. On the morning of the presentation, at approximately 11:30, the patient informed his that he was going to use the bathroom. He remained in the bathroom for an extended period, and when his checked on him, he verbally responded, saying he would come out soon. His reported that he often refused assistance with cleaning up after using the bathroom, citing his stubbornness and preference to manage on his own. At approximately 13:00, his planned to leave for a [place] green party and reminded him to clean up after himself. He continued to refuse help, insisting that he would take care of everything. She left the house for the green party and jew, assuming he would be fine. Upon returning home at 17:30, she found the patient still in the bathroom. When she entered, she found him on the floor, face down, tangled in his walker, with his legs around the toilet. The patient was conscious but unable to get up. His called her granddaughter for assistance. Together, they attempted to lift him, but his weight and positioning made it impossible. Despite his inability to rise, the patient continued to insist that he would get up on his own. Paramedics were called to assist later. While on the scene, they managed to turn him to a face-up position, the patient became pale, cyanotic, and progressively less responsive. He exhibited signs of respiratory distress, prompting the paramedics to initiate the ACLS. The could not determine exactly when the patient fell or how long he had been on the floor. The patient has a history of progressive physical decline. Approximately one week prior, he transitioned from using a cane to a walker due to worsening right knee pain from a prior fall. His reported increasing difficulty in assisting him with activities of daily living, including toileting and cleaning, due to his body weight (>300 lbs) and her physical limitations. Over the past three days, the patient experienced increased falls and expressed awareness of his declining condition, acknowledging the eventual need for shelter placement. ER Course: The patient arrived at the ER at 18:02 in cardiac arrest, was intubated at 18:07 (per ER physician, a large amount of coffee ground blood was noted coming from the stomach during the procedure), and achieved ROSC at 18:11. Initial laboratory findings revealed a WBC of 25.7, glucose of 450, BUN of 26, creatinine of 2.1, lactic acid of 11.2, AST of 296, ALT of 199, and an elevated anion gap of 19. Troponin was <0.033, BNP was 73, and procalcitonin was 0.16. Levophed was initiated for low blood pressure. An orogastric tube was placed, yielding coffee ground emesis, and a Protonix drip was started. Imaging with a CT head was negative for intracranial bleeding. The patient is being admitted to the ICU for further management. Past Medical History: HTN, DM, CVA, dementia Past Surgical History: None Medications: Aspirin, lipitor, plavix, doxazosin, dutasteride, vit D2, insulin, metoprolol, pioglitzaone, ramipril Plan #Cardiac Arrest (Hypovolemic Shock/Dehydration/Sepsis/GI Bleed/Respiratory Distress) - Continue Levophed infusion to maintain mean arterial pressure > 65 mmHg - Manage mechanical ventilation - Start broad-spectrum antibiotics due to leukocytosis and elevated lactate, suggesting possible sepsis - Obtain blood and urine cultures - Perform serial neurological exams and consider EEG if altered mental status persists - Monitor renal function with daily BUN and creatinine levels - Ensure adequate hydration but avoid fluid overload - Continue Protonix drip for suspected gastrointestinal bleeding - Monitor H/H and transfuse as needed - Consult GI - Use sliding scale insulin to control hyperglycemia - Perform an echocardiogram to assess cardiac function and rule out significant structural abnrmalities. - Keep NPO - Order daily labs - Apply SCDs for DVT prophylaxis - DNR
--- NOTE | 2024-03-02 19:51 | PC.NURSE ---
16 azeri jackson cath, WITH 10 ML BALLOON, placed by Rose MOJICA AT 1829. 16 ENGLISH OG PLACED BY ROSE MOJICA AT 1830, AT 60 TO LIP. OG CONNECTED TO LIS WITH COFFEE GROUND EMESIS
--- NOTE | 2024-03-02 20:40 | PC.RT ---
took pt too and from CT. No complications
[2024-03-02] MEDS: PROPOFOL 1,000 MG IVPB 1,000 MG/100 ML VIAL 8.165 MG IV (21:09)
[2024-03-02 21:24] LABS: Reflex Lactate? Y
--- NOTE | 2024-03-02 21:45 | PD.RESHP ---
Documentation for date of: 03/02/24 [facility] History of Present Illness History of present illness: 73-year-old man with past medical history of diabetes mellitus type 2, TIA 1 month ago, hypertension, dementia, morbid obesity who came to the ED brought by ambulance due to cardiac arrest. History was taken from patient to patient was sedated and intubated. Patient stated that around 11:00 in the morning patient went to the use the bathroom on the noticed that the patient stayed for a long period of time so she went to check on him. Patient stated that he did not need any help at the time and that he will be out soon. Later in the afternoon the patient needed to leave the house to go to taoism before leaving check on him and he stated that he was doing fine. Around 1730 p.m. when she came back home patient was still inside the bathroom when he found him he was on the floor facedown, conscious and he was speaking. They tried to lift him up but they were unsuccessful due to his weight and position for which they called the paramedics for assistance. At the scene when the paramedics arrived and tried to turn him and reposition him he became pale, cyanotic and altered and they started CPR. Per patient she thinks the patient was on the floor since the morning but she stated that she really do not know for how long he was down. The stated that the patient overall state of health has been declining 1 week prior with recurrent falls and weakness and they wanted to admit him to a group home. The patient arrived to the emergency department at 18:02 with cardiac arrest and intubated at 18:07 and during the procedure per ER physician a large amount of coffee-ground emesis was noted coming from the stomach. ROSC was achieved 18:11 after 2 rounds of CPR. Initial vitals: BP 138/61 HR 127 RR 17 afebrile saturating 100% on mechanical ventilation FiO2 100% Pertinent labs: Leukocytosis 25.7, creatinine 2.1 BUN 26, hemoglobin 12.7, lactic acidosis 11.2 transaminitis AST 286 ALT 199, hyperglycemia 450, anion gap metabolic acidosis with anion gap of 19, Pro-Thien 0.16, creatinine kinase 03115. Pertinent imaging:Chest x-ray showed mild enlargement cardiac contour and prominent vascular congestion, CT head was negative for hemorrhage or midline shift. At the ED patient received: Levophed, propofol and Versed gtt. gastroenterology was consulted and patient was started on Protonix drip and patient will be admitted to the ICU for further treatment and management s/p cardiac arrest Past medical history: Diabetes mellitus type 2, TIA 1 month ago, hypertension, dementia, morbid obesity Past surgical history: None relevant Family history: None relevant Social history: No alcohol, no cigarette smoking no recreational drugs Travel history: None relevant Allergies: No known allergies Review of Systems Review of Systems ROS Unobtainable: unobtainable due to medical condition Exam Vital Signs Pulse Resp BP Pulse Ox O2 Del Method FiO2 94 36 H 124/78 99 Mechanical Ventilation 100 03/02/24 21:40 03/02/24 21:40 03/02/24 21:40 03/02/24 21:40 03/02/24 18:15 03/02/24 18:34 Narrative Exam General: Morbidly obese, sedated and mechanically ventilated. HEENT: Miotic, reactive to light, dry mucous membranes, ET tube in place. Neck: Supple, No masses, No adenopathy, carotid pulse 2+ bilaterally without bruits, No JVD. Chest: Symmetrical, atraumatic, and with equal expansion , Nontender on palpation no deformity and no crepitus. CVS: S1 and S2 present, Regular rate and rhythm, No murmurs, rubs or gallops perceived during auscultation. Lungs: Coarse sounds consistent with mechanical ventilation perceived during auscultation, no wheezing or crackles perceived during auscultation, no intercostal or subcostal retraction. Abdomen: Increased abdominal pannus, no tenderness to palpation, no guarding, no rebound, positive bowel sounds. Extremities: Venous stasis, 1+ edema on bilateral lower extremity , cold, cap refill less than 2, +2 dp equal bilaterally. Skin: Multiple skin wounds on bilateral knees and excoriations, abdominal skin abrasions, bilateral upper extremities ecchymosis and skin tearings. Neuro: Difficult to assess due to the patient is sedated and mechanically ventilated. Psych: Difficult to assess due to the patient is sedated and mechanically ventilated. Results: Labs 03/03/24 00:45 03/02/24 18:09 Labs: Short CBC 03/02/24 Range/Units 18:09 WBC 25.7 H (3.8-10.6) Thou/mm3 Hgb 12.7 L (13.5-16.0) g/dL Hct 40.0 L (41.0-53.0) % Plt Count 375 (140-440) Thou/mm3 BMP 03/02/24 18:09 Sodium 134 L Potassium 4.1 Chloride 99 Carbon Dioxide 16.2 L BUN 26 H Creatinine 2.1 H Glucose 450 H* Calcium 9.4 Cardiac Enzymes 03/02/24 Range/Units 18:09 Troponin I 0.033 (0.0-0.045) ng/mL Liver Function 03/02/24 Range/Units 18:09 Total Bilirubin 0.4 (0.3-1.2) mg/dL AST 296 H (0-34) U/L ALT 199 H (10-49) U/L Alkaline Phosphatase 101 (46-116) U/L Albumin 4.3 (3.4-4.8) gm/dL Urine 03/02/24 Range/Units 18:26 Urine Color Lt-Yellow (Lt Yel-Yel) Urine Clarity Clear (Clear/Hazy) Urine pH 6.0 (5.0-7.0) Ur Specific [place] 1.015 (1.001-1.035) Urine Protein 1+ A (Neg - Trace) Urine Glucose (UA) Negative (Negative) ABG Interpretation ABG results: 03/02/24 19:00 ABG pH 7.04 L* ABG pCO2 56 H ABG pO2 323 H ABG HCO3 15 L ABG O2 Saturation 100 H ABG Base Excess -16 L Quality Measures Quality Measures none Advance care planning discussed with:: spouse Medications Home Medications and Allergies Home Medications ?Medication ?Instructions ?Recorded ?Confirmed ?Type insulin aspart U-100 100 unit/mL 80 ea subcut QDAY 11/12/21 03/02/24 History (3 mL) subcutaneous pen (Novolog FlexPen U-100 Insulin aspart) pioglitazone 30 mg tablet 1 tab PO QDAY 11/12/21 03/02/24 History aspirin 81 mg tablet 81 mg PO QDAY 11/15/21 03/02/24 History atorvastatin 10 mg tablet 1 tab PO HS 11/15/21 03/02/24 History dutasteride 0.5 mg capsule 0.5 mg PO DAILY 11/15/21 03/02/24 History insulin glargine 100 unit/mL (3 See Rx Instructions .Route .COMPLEX 11/15/21 03/02/24 History mL) subcutaneous pen (Basaglar KwikPen U-100 Insulin) metoprolol succinate 50 mg 1 tab PO DAILY 11/15/21 03/02/24 History tablet,extended release 24 hr ramipril 10 mg tablet 10 mg PO DAILY 11/15/21 03/02/24 History clopidogrel 75 mg tablet 75 mg PO 1XD 03/02/24 03/02/24 History doxazosin 8 mg tablet 8 mg PO QPM 03/02/24 03/02/24 History ergocalciferol (vitamin D2) 25,000 50,000 unit PO QWEEK 03/02/24 03/02/24 History unit capsule Allergies Allergy/AdvReac Type Severity Reaction Status Date / Time No Known Allergies Allergy Verified 11/15/21 11:37 Visit Medications Acetaminophen (Acetaminophen 325 Mg Tablet) 650 mg PO Q6H PRN PRN Reason: Fever >100.4 - pain 1-3 Stop: 04/01/24 20:51 Dextrose (Dextrose 50%-Water Inj 50 Ml Syringe) 25 ml IV Q15MIN PRN PRN Reason: BG 50-70 responsive npo pt Stop: 04/01/24 21:12 Dextrose (Dextrose 50%-Water Inj 50 Ml Syringe) 50 ml IV Q15MIN PRN PRN Reason: BG <50 OR BG <70 & pt unresponsive Stop: 04/01/24 21:12 Glucagon (Glucagon Inj 1 Mg Vial) 1 mg IM Q15MIN PRN PRN Reason: BG <70, and no IV access Pantoprazole Sodium (Protonix/Ns 80mg Iv Premix) 80 mg in 100 mls @ 10 mls/hr IV Q10H VLAD Stop: 03/05/24 16:22 Last Admin: 03/02/24 18:50 Dose: 10 mls/hr Midazolam HCl (Versed Pf Inj In Ns Premix) 100 mg in 100 mls @ 1 mls/hr IV .Q24H PRN; Protocol PRN Reason: PER PROTOCOL Stop: 03/07/24 18:31 Last Titration: 03/02/24 21:20 Dose: 10 mg/hr, 10 mls/hr Norepinephrine Bitartrate (Levophed In Ns 16mg/250ml) 16 mg in 250 mls @ 6.379 mls/hr IV .Q24H PRN; Protocol PRN Reason: PER protocol Stop: 04/01/24 19:05 Last Titration: 03/02/24 21:37 Dose: 0.5 mcg/kg/min, 63.787 mls/hr Propofol (Diprivan Ivpb) 1,000 mg in 100 mls @ 4.082 mls/hr IV .Q24H PRN; Protocol PRN Reason: PER PROTOCOL Stop: 04/01/24 21:05 Last Admin: 03/02/24 21:09 Dose: 10 mcg/kg/min, 8.165 mls/hr Vancomycin HCl 2,000 mg/ (Sodium Chloride) 500 mls @ 150 mls/hr IV X1 ONE Stop: 03/03/24 00:29 Piperacillin/Tazobactam/Dextrose (Zosyn) 3.375 gm in 50 mls @ 100 mls/hr IV Q8HR VLAD Stop: 03/09/24 21:10 Lactated Ringer's (Lactated Ringers) 1,000 mls @ 999 mls/hr IV .Q1H1M ONE Stop: 03/02/24 22:16 Piperacillin/Tazobactam/Dextrose (Zosyn) 3.375 gm in 50 mls @ 100 mls/hr IV X1 ONE Stop: 03/02/24 22:14 Insulin Human Lispro (Insulin Lispro (Admelog) 1 Unit/0.01 Ml Unit) 0 unit SC Q6HR VLAD; Protocol Stop: 04/02/24 00:00 Ondansetron HCl (Ondansetron Inj 2 Mg/Ml Inj 2 Ml) 4 mg IV Q6H PRN; Protocol PRN Reason: NAUSEA OR VOMITING Stop: 04/01/24 20:51 Pharmacy Consult (Vancomycin Pharmacy To Dose 1 Each Each) 1 each IV QDAY [facility] Stop: 04/02/24 08:59 Discontinued Medications Heparin Sodium (Porcine) (Heparin Sod Inj 5000 Unit/Ml Vial) 5,000 unit SC Q8HR [facility] Stop: 03/16/24 21:59 Norepinephrine/Dextrose (Levophed In D5w 8mg/250ml) 8 mg in 250 mls @ 0 mls/hr IV PRN; Protocol PRN Reason: PER PROTOCOL Stop: 04/01/24 19:05 Pantoprazole Sodium (Pantoprazole Inj 40 Mg Vial) 80 mg IV X1 ONE Stop: 03/02/24 18:24 Last Admin: 03/02/24 18:43 Dose: 80 mg Pantoprazole Sodium (Pantoprazole Inj 40 Mg Vial) 40 mg IVP QDAY VLAD Stop: 04/02/24 08:59 Assessment & Plan Plan 73-year-old man with past medical history of diabetes mellitus type 2, TIA 1 month ago, hypertension, dementia, morbid obesity who came to the ED brought by ambulance due to cardiac arrest. History was taken from patient to patient was sedated and intubated. Patient stated that around 11:00 in the morning patient went to the use the bathroom on the noticed that the patient stayed for a long period of time so she went to check on him. Patient stated that he did not need any help at the time and that he will be out soon. Later in the afternoon the patient needed to leave the house to go to taoism before leaving check on him and he stated that he was doing fine. Around 1730 p.m. when she came back home patient was still inside the bathroom when he found him he was on the floor facedown, conscious and he was speaking. They tried to lift him up but they were unsuccessful due to his weight and position for which they called the paramedics for assistance. At the scene when the paramedics arrived and tried to turn him and reposition him he became pale, cyanotic and altered and they started CPR. Per patient she thinks the patient was on the floor since the morning but she stated that she really do not know for how long he was down. The stated that the patient overall state of health has been declining 1 week prior with recurrent falls and weakness and they wanted to admit him to a group home. The patient arrived to the emergency department at 18:02 with cardiac arrest and intubated at 18:07 and during the procedure per ER physician a large amount of coffee-ground emesis was noted coming from the stomach. ROSC was achieved 18:11 after 2 rounds of CPR. Initial vitals: BP 138/61 HR 127 RR 17 afebrile saturating 100% on mechanical ventilation FiO2 100% Pertinent labs: Leukocytosis 25.7, creatinine 2.1 BUN 26, hemoglobin 12.7, lactic acidosis 11.2 transaminitis AST 286 ALT 199, hyperglycemia 450, anion gap metabolic acidosis with anion gap of 19, Pro-Thien 0.16, creatinine kinase 55675. Pertinent imaging:Chest x-ray showed mild enlargement cardiac contour and prominent vascular congestion, CT head was negative for hemorrhage or midline shift. At the ED patient received: Levophed, propofol and Versed gtt. gastroenterology was consulted and patient was started on Protonix drip and patient will be admitted to the ICU for further treatment and management. MEDICAL TECHNOLOGIST: #Acute encephalopathy #Dementia Secondary to sedation Per patient he had an episode of TIA [address] head was negative for acute hemorrhage or midline shift ? Continue propofol and fentanyl gtt. with RASS of -3 ? Neurochecks every hour ? SAT daily CVS: #S/p cardiac arrest #Undifferentiated shock Possibly secondary to septic shock vs hypovolemic vs acute hypoxic respiratory failure Patient arrived to the emergency department at 18:02 with cardiac arrest and intubated at 18:07 ER physician noted a large amount of coffee-ground emesis coming from the stomach. ROSC was achieved 18:11 after 2 rounds of CPR. Per patient unknown downtime Troponins were negative ? Continue Levophed gtt. to keep MAP above 65 ? Echo pending ? Follow-up blood and urine cultures ? Follow-up CBC and CMP #History of hypertension ? Hold home medications in the setting of shock PULM: #Acute hypoxic respiratory failure In the setting of shock Chest x-ray showed mild enlargement cardiac contour and pulmonary vascular congestion ABG pH 7.04 pCO2 56 pO2 223 HCO3 15 O2 sat 100 base excess -16 Vent settings:AC/VC VT 450 RR 18 PEEP 5 FiO2 100 ? Repeat ABG ? Follow-up ABG daily ? Follow-up chest x-ray in the morning GI: #Acute GI bleed Possibly secondary to PUD vs medication induced? vs lower GI bleed vs esophageal varices? Patient take Plavix and aspirin daily Per ED physician gross amount of coffee-ground emesis was observed during intubation Gastroenterology was consulted, greatly appreciate recommendations - IV Protonix drip - Transfuse if hemoglobin less than 7 - Follow-up CBC - NPO now #Transaminitis In the setting of shock and s/p cardiac arrest AST 296 ALT 199 ? Follow-up CMP RENAL: #Anion gap metabolic acidosis #Lactic acidosis #KEEGAN In the setting of shock and s/p cardiac arrest Lactic acid 11.2 anion gap 19, bicarb 16.2 creatinine 2.1 BUN 26 ABG pH 7.04 pCO2 56 pO2 223 HCO3 15 O2 sat 100 base excess -16 Nephrology was consulted we greatly appreciate recomendations ? IV fluids LR 1 L x 1 ? Trend lactic acid every 3 hours ? Avoid nephrotoxic drugs ? Strict in and outs ? Renally dose medications ? Follow-up CMP ? Follow-up electrolytes and replete as necessary ENDO: #Diabetes mellitus type 2 On arrival patient was hyperglycemic 450 ? Hold home medications ? Sliding scale insulin ? Hypoglycemia protocol in place ? Follow-up A1c HEME/ONC: Stable ID: #Leukocytosis Possibly secondary to septic shock vs reactive? WBCs 25.7 UA showed pyuria and leukocyte esterase positive otherwise no bacteria less likely UTI Pro-Thien was negative, chest x-ray was negative for pneumonic infiltrates most likely vascular congestion ? Started IV vancomycin and Zosyn (03/02/ ? Follow-up blood and urine cultures ? Follow-up sputum Gram and cultures ? Follow-up CBC MSK: #Rhabdomyolysis In the setting [place] [address] ? IV fluids 1 L bolus LR x 1 ? Strict in and outs ? Follow-up creatinine kinase daily SKIN: #Multiple skin abrasions and excoriations ? Wound care FEN: N.p.o. Lines: Peripheral DVT prophylaxis: SCD GI prophylaxis: Protonix drip CODE STATUS: DNR Patient discussed with my attending Dr Pop Torres MD PGY-3 Disclaimer: Despite multiple revisions, due to the dictation software being used, the document bellow may not be free of grammatical errors including phonetic/typographic errors. However, this does not deter from our commitment to providing health care in the patient's best interest in mind. Attending Provider Attestation/Addendum Pt was evaluated and plan formulated together with the housestaff team. I have reviewed the residents note above and agree with most of its content. Please refer to the residents note for additional details.
[2024-03-02 21:52] LABS: Base Excess -11 (-3-3); HCO3 18 mEq/L (20-26); Inspired Oxygen, FIO2 100 %; O2 Saturation 86 % (91-98); PCO2 55 mmHg (32.0-48.0); PO2 64 mmHg (83-108)
[2024-03-02 22:10] LABS: Lactic Acid, 3 HR 7.2 mMol/L (0.4-2.0)
[2024-03-02 22:13] LABS: Allen Test Performed/OK; Puncture Site Right Radial
[2024-03-02 22:14] LABS: pH, Arterial 7.13 (7.35-7.45)
[2024-03-02 22:38] LABS: Phosphorous 8.3 mg/dL (2.4-5.1)
[2024-03-02] MEDS: Vancomycin Inj 2,000 MG in SODIUM CHLORIDE 0.9% 500 ML 500 ML 150 MG IV (22:39)
[2024-03-02] MEDS: PIPER/TAZO 3.375 GM 3.375 GM/50 ML BAG IV (22:42)
[2024-03-02 22:49] LABS: Creatine Kinase 17087 U/L (34-171)
[2024-03-02 22:53] LABS: Base Excess -10 (-3-3); HCO3 19 mEq/L (20-26); Inspired Oxygen, FIO2 100 %; O2 Saturation 86 % (91-98); PCO2 54 mmHg (32.0-48.0); PO2 62 mmHg (83-108)
[2024-03-02 22:54] LABS: Allen Test Performed/OK; Puncture Site Left Radial
[2024-03-02 22:55] LABS: pH, Arterial 7.16 (7.35-7.45)
[2024-03-02] MEDS: RINGERS LACTATED 1000 ML 1,000 ML 999 ML IV (23:15)
[2024-03-02] MEDS: Norepinephrine/NS 16mg/250ml 16 MG/250 ML BAG 63.787 MG IV (23:55)
[2024-03-02] MEDS: fentaNYL 2,500 MCG/250 ML BAG 2,500 MCG/250 ML BAG 12.5 MCG IV (23:56)
[2024-03-03] VITALS (112 sets, daily range): BP systolic 81–185; BP diastolic 47–100; PULSE 82–112; RESP 4–42; TEMP 36.1–37.7; O2SAT 88–99; BMI 50.8
[2024-03-03] MEDS: INSULIN LISPRO (AdmeLOG) 1 UNIT/0.01 ML UNIT SC ×5 (00:03→23:42)
[2024-03-03 01:07] LABS: Lactate (Lactic Acid) 5.5 mMol/L (0.4-2.0)
[2024-03-03 01:10] LABS: Hematocrit 42.5 % (41.0-53.0)
[2024-03-03 01:13] LABS: Allen Test Performed/OK; Base Excess -9 (-3-3); HCO3 20 mEq/L (20-26); Inspired Oxygen, FIO2 100 %; O2 Saturation 86 % (91-98); PCO2 55 mmHg (32.0-48.0); PO2 61 mmHg (83-108); Puncture Site Left Radial
[2024-03-03 01:14] LABS: pH, Arterial 7.17 (7.35-7.45)
[2024-03-03] MEDS: RINGERS LACTATED 1000 ML 1,000 ML 250 ML IV (01:25)
[2024-03-03] MEDS: PROPOFOL 1,000 MG IVPB 1,000 MG/100 ML VIAL 20.412 MG IV (02:55)
[2024-03-03] MEDS: FUROSEMIDE INJ 10 MG/ML 4ML VIAL 40 MG IVP (03:24)
[2024-03-03 03:30] LABS: Base Excess -9 (-3-3); HCO3 20 mEq/L (20-26); O2 Saturation 87 % (91-98); PCO2 54 mmHg (32.0-48.0); PO2 60 mmHg (83-108)
[2024-03-03 03:32] LABS: Allen Test Performed/OK; Inspired Oxygen, FIO2 100 %; Puncture Site Left Radial
[2024-03-03 03:33] LABS: pH, Arterial 7.18 (7.35-7.45)
[2024-03-03 03:38] LABS: Basophils % (Auto) 0 % (0-2.5); Eosinophils % (Auto) 0 % (0-10); Hemoglobin 14.1 g/dL (13.5-16.0); Immature Granulocytes % (Auto) 0 % (0-0); Immature Granulocytes Auto 0.03 Thou/mm3 (0.00-0.00); Lymphocytes # (Auto) 0.7 Thou/mm3 (1.0-4.8); Lymphocytes % (Auto) 9 % (10-50); Mean Corpuscular HGB Conc 32.8 g/dl (31.0-37.0); Mean Corpuscular Hemoglobin 29.9 pg (25.0-35.0); Mean Corpuscular Volume 91 fL (80-100); Monocytes # (Auto) 0.5 Thou/mm3 (0.0-0.8); Monocytes % (Auto) 6 % (0-12); Neutrophils # (Auto) 6.7 Thou/mm3 (1.8-7.7); Neutrophils % (Auto) 84 % (37-80); Nucleated Red Blood Cell % 0 /100 WBC (0); Platelet Count 361 Thou/mm3 (140-440); RDW Standard Deviation 49.6 fL (35.1-43.9); Red Blood Count 4.71 Miln/mm3 (4.50-5.90); White Blood Count 7.9 Thou/mm3 (3.8-10.6)
[2024-03-03 03:42] LABS: Lactate (Lactic Acid) 3.4 mMol/L (0.4-2.0)
[2024-03-03] MEDS: Norepinephrine/NS 16mg/250ml 16 MG/250 ML BAG 56.132 MG IV (03:43)
[2024-03-03 03:58] LABS: Glucose Estimated Average 169 mg/dL (80-131); Hemoglobin A1C 7.5 % Hgb (4.8-6.0)
[2024-03-03 04:05] LABS: Reflex Lactate? Y
[2024-03-03] MEDS: PANTOPRAZOLE/NS 80MG IV PREMIX 80 MG/100 ML BAG 10 MG IV ×3 (04:31→23:37)
[2024-03-03 05:25] LABS: Base Excess -8 (-3-3); HCO3 20 mEq/L (20-26); O2 Saturation 89 % (91-98); PCO2 52 mmHg (32.0-48.0); PO2 63 mmHg (83-108)
[2024-03-03 05:29] LABS: Allen Test Performed/OK; Inspired Oxygen, FIO2 100 %; Puncture Site Left Radial
[2024-03-03 05:30] LABS: pH, Arterial 7.19 (7.35-7.45)
--- NOTE | 2024-03-03 06:00 | XR_ITS ---
Examination: AP chest single view Technique one AP portable semiupright chest single view Exam date and time: March 03, 2024 0549 hrs. Comparison March 02, 2024 Indications: Hypoxic respiratory failure postintubation Findings: Extensive bilateral pneumonia and/or pulmonary edema Endotracheal tube tip 5 cm above jimmie No pneumothorax Mild enlargement cardiac contour Impression: Interval extensive bilateral pulmonary edema and/or pneumonia
[2024-03-03] MEDS: PIPER/TAZO 3.375 GM 3.375 GM/50 ML BAG IV ×3 (06:29→22:06)
[2024-03-03 06:34] LABS: Reflex Lactate? Y
[2024-03-03] MEDS: PROPOFOL 1,000 MG IVPB 1,000 MG/100 ML VIAL 28.576 MG IV (06:58)
[2024-03-03 07:22] LABS: Lactate (Lactic Acid) 2.5 mMol/L (0.4-2.0)
[2024-03-03] MEDS: VASOPRESSIN IN NS IVPB 20 UNIT/100 ML BAG 9 UNIT IV ×2 (07:30→16:24)
[2024-03-03 07:51] LABS: Alanine Aminotransferase 230 U/L (10-49); Albumin, Serum 3.3 gm/dL (3.4-4.8); Albumin/Globulin Ratio 1.4 (1.2-2.2); Alkaline Phosphatase 72 U/L (46-116); Anion Gap 13 (7-16); Aspartate Amino Transferase 664 U/L (0-34); BUN/Creatinine Ratio 13 Ratio (12-20); Bilirubin,Total 0.4 mg/dL (0.3-1.2); Blood Urea Nitrogen 34 mg/dL (9-23); Calcium 7.9 mg/dL (8.3-10.6); Calcium (Corrected) 8.5 mg/dL (8.5-10.1); Carbon Dioxide 16.5 mMol/L (20.0-31.0); Chloride 105 mMol/L (98-107); Creatinine (Component) 2.7 mg/dL (0.6-1.3); Estimated Creatinine Clearance 32.4 mL/min (>60); Globulin 2.3 gm/dL (2.3-3.5); Magnesium 1.8 mg/dL (1.6-2.6); Osmolality,Calculated 293 (275-295); Phosphorous 6.7 mg/dL (2.4-5.1); Sodium 134 mMol/L (136-145); Total Protein 5.6 gm/dL (5.7-8.2); eGFR 24 See Note
[2024-03-03 07:52] LABS: Glucose 423 mg/dL (74-106)
--- NOTE | 2024-03-03 07:54 | XR_ITS ---
Examination: AP chest single view Technique: AP portable semiupright chest single view Exam date and time: March 03, 2024 at 0758 hrs. Comparison March 03, 2024 0549 hrs. Indications: Interval insertion central line today Findings: Interval right internal jugular central line tip SVC satisfactory position No pneumothorax Tracheal tube tip remains 5 cm above jimmie Extensive bilateral pneumonia and/or edema remains Impression: Interval right internal jugular central line tip SVC satisfactory position No pneumothorax
[2024-03-03 07:58] LABS: Creatine Kinase 32670 U/L (34-171)
[2024-03-03] MEDS: Norepinephrine/NS 16mg/250ml 16 MG/250 ML BAG 61.235 MG IV (08:00)
--- NOTE | 2024-03-03 08:06 | PD.RESPROC ---
Procedures Procedure Date / Time 03/03/24 08 Central Line Placement Right IJ: Indication(s): shock Informed consent obtained: obtained from surrogate decision maker Time out done, and the following verified: correct patient, side and site, procedure, patient position and implants and/or equipment Patient placed on monitor/pulse ox: Yes Hand Hygiene: scrub and soap & water Max Sterile Barrier Techniques used: cap, mask, sterile gown, sterile gloves and sterile full body drape Central line prep: Chlorhexidine scrub Local anesthesia used: lidocaine 1% Amount of anesthesia used (mL): 5 Ultrasound used for placement: Yes Sterile Technique if Ultrasound used, including sterile gel: yes Central line lumen inserted: triple Post procedure: sutured in place, good blood return, all ports aspirated, flushed, capped and sterile dressing applied Post procedure x-ray: tip of catheter in good position and no pneumothorax seen Patient tolerated procedure: well Complications: none Procedure comment: Attending note I was present for and assisted in morejon/all aspects of the procedure. pt tolerated the procedure well without complications
[2024-03-03 08:19] LABS: INR 1.1 (0.9-1.3); Partial Thromboplastin Time 20.9 Seconds (22.0-36.0); Prothrombin Time 12.4 Seconds (9.0-12.2)
--- NOTE | 2024-03-03 09:00 | ESCONSULT_ITS ---
HPI Data of Consult Consult date: 03/03/24 Requesting Physician: Niki Donovan MD Admitting Provider: Ross Lord MD Attending Provider: Niki Donovan MD Primary Care Provider: Alfred Mcneil MD Consult Narrative Reason for consult: KEEGAN, anuria History of present illness: Chart review done. Mr. Goode is a 73-year-old male with a previous medical history of type 2 diabetes, hypertension, dementia, recent TIA 1 month ago who was brought in by ambulance 03/02/24 at 18:01 after cardiac arrest. Due to patient's condition history was gathered through chart review. He received [address] doses of epinephrine on the way, 2 doses in the ED. Was intubated in the ED, during intubation large amount of coffee-ground emesis was noted. ROSC was achieved after 2 rounds of CPR 18:11 PM. Per his patient spends prolonged time in the bathroom since 11 AM, at around 1730 p.m. she was found him lying on the floor facedown conscious and speaking. She was unsuccessful in lifting him, called paramedics. When they tried to turn him he became pale, cyanotic, CPR was started. Exact time of prolonged laying is unknown. ED course: Blood pressure 138/61, heart rate 127, saturating 100% on mechanical ventilation. Labs show WBC 25.7, hemoglobin 12.7, creatinine 2.1, BUN 26, glucose 450, lactic acid 11.2, AST 296, ALT 199, creatinine kinase 17,087. Urine analysis showed protein 1+, positive leukocyte esterase, RBC 14, WBC 108. Chest x-ray showed mild heart failure, head CT negative for acute hemorrhage, mass effect or midline shift. Patient was started on pantoprazole drip for possible GI bleed, Zosyn IV, fentanyl propofol for sedation, Levophed. Received 2 L of fluid in the ED. Patient was admitted to the ICU for postcardiac arrest and acute hypoxic respiratory failure management and treatment. 03/03/24: Patient was seen and examined at the bedside in the ICU. Blood pressure 94/51, heart rate 87, vasopressin was added to Levophed. Continues to be on mechanical ventilation, sedated. Urine output since admission is 263 mL, patient has been anuric in the last 6 hours. Labs showed sodium 134, potassium 5, bicarb 16.5, BUN 34, creatinine 2.7, EGFR 24. Kidney functions worsened compared to yesterday, baseline creatinine 0.9. Creatinine kinase levels 32,670, AST 664, ALT 230. Chest Xray showed extensive pneumonia and/or pulmonary edema. According to the family, patient is DNR and his family would not like to proceed with dialysis at this moment. cc:: cc: Niki Donovan MD Review of Systems Review of Systems ROS Unobtainable: unobtainable due to medical condition and due to endotracheal tube Past Medical History Past Medical History NEUROLOGIC: Negative Neurological Disorders or Seizures CARDIAC: Positive Cardiac Disorders and Hypertension; Negative Congestive Heart Failure RESPIRATORY: Negative Chronic Obstructive Pulmonary Disease (COPD) GASTROINTESTINAL: Negative Gastrointestinal Disorders GENITOURINARY: Negative Genitourinary Disorders or Renal Disease REPRODUCTIVE: Negative Fibroids MUSCULOSKELETAL: Negative Musculoskeletal Disorders ENDOCRINE: Positive Endocrine Disorders and Diabetes Mellitus Type 2; Negative Diabetes Mellitus Type 1 OTHER HISTORY: Negative Blood Transfusions, Anesthesia Reactions or Cancer Family History FAMILY HISTORY: Negative Family Cardiac Disorders Social History SMOKING STATUS: Never smoker SUBSTANCE USE: does not use Exam Vital Signs Temp Pulse Resp BP Pulse Ox O2 Del Method FiO2 97 F 87 4 L 94/51 L 88 L Mechanical Ventilation 90 03/03/24 00:00 03/03/24 08:00 03/03/24 02:15 03/03/24 08:00 03/03/24 07:02 03/03/24 00:00 03/03/24 07:52 Narrative Exam Gen: Well-developed and well-nourished. BMI 50.9. HEENT: Orotracheal intubation noted CVS: normal S1 and S2. RRR. No M/R/G. Resp: CTA B/L. No rhonchi, rales, crackles or wheezing. Abd: soft, non-tender, non-distended. BS+ in all 4 quadrants. MSK: No edema. Venous stasis dermatitis. Bilateral upper extremities ecchymoses. Neuro: Examination restricted due to sedation and mechanical ventilation. Psych: Impossible to assess, sedated. Results Labs 03/03/24 09:24 03/03/24 07:02 Labs: Short CBC 03/02/24 03/03/24 03/03/24 Range/Units 18:09 00:45 03:18 WBC 25.7 H 7.9 D (3.8-10.6) Thou/mm3 Hgb 12.7 L 14.0 14.1 (13.5-16.0) g/dL Hct 40.0 L 42.5 43.0 (41.0-53.0) % Plt Count 375 361 (140-440) Thou/mm3 BMP 03/02/24 03/03/24 18:09 07:02 Sodium 134 L 134 L Potassium 4.1 5.0 D Chloride 99 105 Carbon Dioxide 16.2 L 16.5 L BUN 26 H 34 H Creatinine 2.1 H 2.7 H D Glucose 450 H* 423 H* Calcium 9.4 7.9 L D Cardiac Enzymes 03/02/24 03/02/24 03/03/24 Range/Units 18:09 21:23 07:02 Total Creatine Kinase 09110 H 33388 H D (34-171) U/L Troponin I 0.033 (0.0-0.045) ng/mL Liver Function 03/02/24 03/03/24 Range/Units 18:09 07:02 Total Bilirubin 0.4 0.4 (0.3-1.2) mg/dL AST 296 H 664 H* (0-34) U/L ALT 199 H 230 H (10-49) U/L Alkaline Phosphatase 101 72 D (46-116) U/L Albumin 4.3 3.3 L D (3.4-4.8) gm/dL Urine 03/02/24 Range/Units 18:26 Urine Color Lt-Yellow (Lt Yel-Yel) Urine Clarity Clear (Clear/Hazy) Urine pH 6.0 (5.0-7.0) Ur Specific [place] 1.015 (1.001-1.035) Urine Protein 1+ A (Neg - Trace) Urine Glucose (UA) Negative (Negative) ABG Interpretation ABG results: 03/02/24 03/02/24 03/02/24 19:00 21:46 22:45 ABG pH 7.04 L* 7.13 L* 7.16 L* ABG pCO2 56 H 55 H 54 H ABG pO2 323 H 64 L D 62 L ABG HCO3 15 L 18 L 19 L ABG O2 Saturation 100 H 86 L 86 L ABG Base Excess -16 L -11 L -10 L 03/03/24 03/03/24 03/03/24 01:03 03:21 05:10 ABG pH 7.17 L* 7.18 L* 7.19 L* ABG pCO2 55 H 54 H 52 H ABG pO2 61 L 60 L 63 L ABG HCO3 20 20 20 ABG O2 Saturation 86 L 87 L 89 L ABG Base Excess -9 L -9 L -8 L Quality Measures Quality Measures VTE prophylaxis Advance care planning discussed with:: spouse Medications Home Medications and Allergies Home Medications ?Medication ?Instructions ?Recorded ?Confirmed ?Type insulin aspart U-100 100 unit/mL 80 ea subcut QDAY 11/12/21 03/02/24 History (3 mL) subcutaneous pen (Novolog FlexPen U-100 Insulin aspart) pioglitazone 30 mg tablet 1 tab PO QDAY 11/12/21 03/02/24 History aspirin 81 mg tablet 81 mg PO QDAY 11/15/21 03/02/24 History atorvastatin 10 mg tablet 1 tab PO HS 11/15/21 03/02/24 History dutasteride 0.5 mg capsule 0.5 mg PO DAILY 11/15/21 03/02/24 History insulin glargine 100 unit/mL (3 See Rx Instructions .Route .COMPLEX 11/15/21 03/02/24 History mL) subcutaneous pen (Basaglar KwikPen U-100 Insulin) metoprolol succinate 50 mg 1 tab PO DAILY 11/15/21 03/02/24 History tablet,extended release 24 hr ramipril 10 mg tablet 10 mg PO DAILY 11/15/21 03/02/24 History clopidogrel 75 mg tablet 75 mg PO 1XD 03/02/24 03/02/24 History doxazosin 8 mg tablet 8 mg PO QPM 03/02/24 03/02/24 History ergocalciferol (vitamin D2) 25,000 50,000 unit PO QWEEK 03/02/24 03/02/24 History unit capsule Allergies Allergy/AdvReac Type Severity Reaction Status Date / Time No Known Allergies Allergy Verified 11/15/21 11:37 Visit Medications Acetaminophen (Acetaminophen 325 Mg Tablet) 650 mg PO Q6H PRN PRN Reason: Fever >100.4 - pain 1-3 Stop: 04/01/24 20:51 Dextrose (Dextrose 50%-Water Inj 50 Ml Syringe) 25 ml IV Q15MIN PRN PRN Reason: BG 50-70 responsive npo pt Stop: 04/01/24 21:12 Dextrose (Dextrose 50%-Water Inj 50 Ml Syringe) 50 ml IV Q15MIN PRN PRN Reason: BG <50 OR BG <70 & pt unresponsive Stop: 04/01/24 21:12 Glucagon (Glucagon Inj 1 Mg Vial) 1 mg IM Q15MIN PRN PRN Reason: BG <70, and no IV access Pantoprazole Sodium (Protonix/Ns 80mg Iv Premix) 80 mg in 100 mls @ 10 mls/hr IV Q10H VLAD Stop: 03/05/24 16:22 Last Admin: 03/03/24 04:31 Dose: 10 mls/hr Norepinephrine Bitartrate (Levophed In Ns 16mg/250ml) 16 mg in 250 mls @ 6.379 mls/hr IV .Q24H PRN; Protocol PRN Reason: PER protocol Stop: 04/01/24 19:05 Last Admin: 03/03/24 08:00 Dose: 0.48 mcg/kg/min, 61.235 mls/hr Piperacillin/Tazobactam/Dextrose (Zosyn) 3.375 gm in 50 mls @ 12.5 mls/hr IV Q8HR VLAD Stop: 03/10/24 06:29 Last Admin: 03/03/24 06:29 Dose: 12.5 mls/hr Fentanyl Citrate (Sublimaze Inj 2,500 Mcg/250 Ml Bag) 2,500 mcg in 250 mls @ 2.5 mls/hr IV .Q24H PRN; Protocol PRN Reason: PER PROTOCOL Stop: 03/07/24 23:37 Propofol (Diprivan Ivpb) 1,000 mg in 100 mls @ 4.082 mls/hr IV .Q24H PRN; Protocol PRN Reason: PER PROTOCOL Stop: 04/02/24 00:59 Last Titration: 03/03/24 08:00 Dose: 30 mcg/kg/min, 24.494 mls/hr Vasopressin/Sodium Chloride (Vasostrict/Ns Ivpb) 20 unit in 100 mls @ 9 mls/hr IV .Q11H7M PRN; Protocol PRN Reason: PER PROTOCOL Stop: 04/02/24 07:17 Last Admin: 03/03/24 07:30 Dose: 0.03 unit/min, 9 mls/hr Vancomycin HCl (Vancomycin/Water 1250 Mg Ivpb) 250 mls @ 120 mls/hr IV DAILY@2200 [facility] Stop: 03/10/24 21:59 Insulin Human Lispro (Insulin Lispro (Admelog) 1 Unit/0.01 Ml Unit) 0 unit SC Q6HR [facility]; Protocol Stop: 04/02/24 00:00 Last Admin: 03/03/24 06:12 Dose: 16 unit Ondansetron HCl (Ondansetron Inj 2 Mg/Ml Inj 2 Ml) 4 mg IV Q6H PRN; Protocol PRN Reason: NAUSEA OR VOMITING Stop: 04/01/24 20:51 Pharmacy Consult (Vancomycin Pharmacy To Dose 1 Each Each) 1 each IV QDAY PRN PRN Reason: CONSULT Stop: 04/02/24 08:59 Discontinued Medications Furosemide (Furosemide Inj 10 Mg/Ml 4ml Vial) 40 mg IVP X1 ONE Stop: 03/03/24 03:18 Last Admin: 03/03/24 03:24 Dose: 40 mg Heparin Sodium (Porcine) (Heparin Sod Inj 5000 Unit/Ml Vial) 5,000 unit SC Q8HR [facility] Stop: 03/16/24 21:59 Midazolam HCl (Versed Pf Inj In Ns Premix) 100 mg in 100 mls @ 1 mls/hr IV .Q24H PRN; Protocol PRN Reason: PER PROTOCOL Stop: 03/07/24 18:31 Last Titration: 03/03/24 00:00 Dose: 0 mg/hr, 0 mls/hr Norepinephrine/Dextrose (Levophed In D5w 8mg/250ml) 8 mg in 250 mls @ 0 mls/hr IV PRN; Protocol PRN Reason: PER PROTOCOL Stop: 04/01/24 19:05 Propofol (Diprivan Ivpb) 1,000 mg in 100 mls @ 4.082 mls/hr IV .Q24H PRN; Protocol PRN Reason: PER PROTOCOL Stop: 04/01/24 21:05 Last Titration: 03/03/24 07:00 Dose: Infused Vancomycin HCl 2,000 mg/ (Sodium Chloride) 500 mls @ 150 mls/hr IV X1 ONE Stop: 03/03/24 00:29 Last Admin: 03/02/24 22:39 Dose: 150 mls/hr Lactated Ringer's (Lactated Ringers) 1,000 mls @ 999 mls/hr IV .Q1H1M ONE Stop: 03/02/24 22:16 Last Infusion: 03/03/24 01:00 Dose: Infused Piperacillin/Tazobactam/Dextrose (Zosyn) 3.375 gm in 50 mls @ 100 mls/hr IV X1 ONE Stop: 03/02/24 22:14 Last Admin: 03/02/24 22:42 Dose: 100 mls/hr Lactated Ringer's (Lactated Ringers) 1,000 mls @ 250 mls/hr IV .Q4H ONE Stop: 03/03/24 03:44 Last Infusion: 03/03/24 02:15 Dose: 0 mls/hr Fentanyl Citrate (Sublimaze Inj 2,500 Mcg/250 Ml Bag) 2,500 mcg in 250 mls @ 2.5 mls/hr IV .Q24H PRN; Protocol PRN Reason: PER PROTOCOL Stop: 03/07/24 23:37 Last Titration: 03/03/24 08:00 Dose: 175 mcg/hr, 17.5 mls/hr Midazolam HCl (Versed Pf Inj In Ns Premix) 100 mg in 100 mls @ 1 mls/hr IV .Q24H PRN; Protocol PRN Reason: PER PROTOCOL Stop: 03/07/24 18:31 Midazolam HCl (Versed Pf Inj In Ns Premix) 100 mg in 100 mls @ 1 mls/hr IV .Q24H PRN; Protocol PRN Reason: PER PROTOCOL Stop: 03/07/24 18:31 Insulin Human Lispro (Insulin Lispro (Admelog) 1 Unit/0.01 Ml Unit) 0 unit SC Q6HR VLAD; Protocol Stop: 04/02/24 00:00 Last Admin: 03/03/24 00:03 Dose: 5 unit Pantoprazole Sodium (Pantoprazole Inj 40 Mg Vial) 80 mg IV X1 ONE Stop: 03/02/24 18:24 Last Admin: 03/02/24 18:43 Dose: 80 mg Pantoprazole Sodium (Pantoprazole Inj 40 Mg Vial) 40 mg IVP QDAY VLAD Stop: 04/02/24 08:59 Assessment & Plan Plan The patient is a 73-year-old male with a previous medical history of type 2 diabetes, hypertension, dementia, recent TIA 1 month ago who was brought in by ambulance 03/02/24 at 18:01 after cardiac arrest. Due to patient's condition history was gathered through chart review. He received 2 doses of epinephrine on the way, 2 doses in the ED. Was intubated in the ED, during intubation large amount of coffee-ground emesis was noted. ROSC was achieved after 2 rounds of CPR 18:11 PM. Per his patient spends prolonged time in the bathroom since 11 AM, at around 1730 p.m. she was found him lying on the floor facedown conscious and speaking. She was unsuccessful in lifting him, called paramedics. When they tried to turn him he became pale, cyanotic, CPR was started. Exact time of prolonged laying is unknown. #KEEGAN #ATN #Anion gap metabolic acidosis, improving #Respiratory acidosis #Lactic acidosis, improving #Rhabdomyolysis Patient has been anuric this morning, likely. Most likely in the setting of the setting of shock, rhabdomyolysis(Pigment nephropathy) and ischemic injury in cardiac arrest. 03/03/24 Lactic acid down trended to 2.7, anion gap 13, bicarb 16.5 creatinine 2.7, BUN 34[place] [address]. ABG pH 7.16 pCO2 53 pO2 64 HCO3 19 O2 sat 90. Fluids are on hold for now due to concern for pulmonary edema. Plan: ?Renal replacement therapy is recommended, but will hold for now due to family deciding not to proceed. ? Avoid nephrotoxic agents ? Strict I's and O's ? Renally dose medications ? Follow-up CMP #Acute encephalopathy #Dementia #S/p cardiac arrest #Undifferentiated shock #History of hypertension #Acute hypoxic respiratory failure #Acute GI bleed #Transaminitis #Diabetes mellitus type 2 #Leukocytosis #Multiple skin abrasions and excoriations ?Management per primary team Plan of care discussed with attending Dr. Caban. Hermelinda Owusu MD, PGY 1. Attending Provider Attestation/Addendum Patient seen and examined with resident physician . Note reviewed, agree with findings and recommendations. Patient currently seen in ICU. On ventilator. Admitted with cardiorespiratory arrest and shock. Noted to have ongoing with KEEGAN. Noted family declined dialysis at this point. Will monitor renal function closely. Suspect patient in ATN with anuria. Thank you Dr. Donovan for allowing me to participate in the care of Mr. Goode
[2024-03-03 09:13] LABS: Base Excess -10 (-3-3); HCO3 19 mEq/L (20-26); O2 Saturation 90 % (91-98); PCO2 53 mmHg (32.0-48.0); PO2 64 mmHg (83-108)
[2024-03-03 09:18] LABS: Allen Test Not Performed; Puncture Site Right Brachial
[2024-03-03 09:19] LABS: pH, Arterial 7.16 (7.35-7.45)
[2024-03-03 09:24] LABS: Inspired Oxygen, FIO2 90 %
--- NOTE | 2024-03-03 09:50 | ESCONSULT_ITS ---
HPI Data of Consult Requesting Physician: Niki Donovan MD Primary Care Provider: Alfred Mcneil MD Consult Narrative Reason for consult: Hematemesis History of present illness: 73 years old male with history of diabetes mellitus type 2 hypertension dementia and recent CVA was brought into the emergency room CODE BLUE Patient was seen to be normal at 39 hours when he was in the bathroom According to his he stopped 1 LHC done at 530 he was to the bathroom and when she opened the door found him flat on the floor with his legs around the bathroom but still breathing on his own She called her granddaughter and with the help they got into the bed and also called EMS While the EMS was there patient became cyanotic unresponsive CPR was started as he got to the ER During the time of intubation patient had coffee-ground hematemesis The internal medicine team called me and and consulted me for this History from the chart review no history is obtained from the patient cc:: cc: Niki Donovan MD Review of Systems Review of Systems ROS Unobtainable: unobtainable due to medical condition Past Medical History Surgical History OTHER SURGICAL HX: As in the history of present illness Meds Home Medications and Allergies Home Medications ?Medication ?Instructions ?Recorded ?Confirmed ?Type insulin aspart U-100 100 unit/mL 80 ea subcut QDAY 11/12/21 03/02/24 History (3 mL) subcutaneous pen (Novolog FlexPen U-100 Insulin aspart) pioglitazone 30 mg tablet 1 tab PO QDAY 11/12/21 03/02/24 History aspirin 81 mg tablet 81 mg PO QDAY 11/15/21 03/02/24 History atorvastatin 10 mg tablet 1 tab PO HS 11/15/21 03/02/24 History dutasteride 0.5 mg capsule 0.5 mg PO DAILY 11/15/21 03/02/24 History insulin glargine 100 unit/mL (3 See Rx Instructions .Route .COMPLEX 11/15/21 03/02/24 History mL) subcutaneous pen (Basaglar KwikPen U-100 Insulin) metoprolol succinate 50 mg 1 tab PO DAILY 11/15/21 03/02/24 History tablet,extended release 24 hr ramipril 10 mg tablet 10 mg PO DAILY 11/15/21 03/02/24 History clopidogrel 75 mg tablet 75 mg PO 1XD 03/02/24 03/02/24 History doxazosin 8 mg tablet 8 mg PO QPM 03/02/24 03/02/24 History ergocalciferol (vitamin D2) 25,000 50,000 unit PO QWEEK 03/02/24 03/02/24 History unit capsule Allergies Allergy/AdvReac Type Severity Reaction Status Date / Time No Known Allergies Allergy Verified 11/15/21 11:37 Exam Vital Signs Temp Pulse Resp BP Pulse Ox O2 Del Method FiO2 97 F 90 4 L 92/56 L 92 L Mechanical Ventilation 90 03/03/24 00:00 03/03/24 09:35 03/03/24 02:15 03/03/24 09:35 03/03/24 09:35 03/03/24 00:00 03/03/24 09:35 Constitutional Comments: Chronically ill-appearing Routine Respiratory Exam Comments: Mechanically ventilated Routine Abdominal Exam Comments: Soft nontender Results Labs 03/03/24 09:24 03/03/24 07:02 Labs: Short CBC 03/02/24 03/03/24 03/03/24 Range/Units 18:09 00:45 03:18 WBC 25.7 H 7.9 D (3.8-10.6) Thou/mm3 Hgb 12.7 L 14.0 14.1 (13.5-16.0) g/dL Hct 40.0 L 42.5 43.0 (41.0-53.0) % Plt Count 375 361 (140-440) Thou/mm3 BMP 03/02/24 03/03/24 18:09 07:02 Sodium 134 L 134 L Potassium 4.1 5.0 D Chloride 99 105 Carbon Dioxide 16.2 L 16.5 L BUN 26 H 34 H Creatinine 2.1 H 2.7 H D Glucose 450 H* 423 H* Calcium 9.4 7.9 L D Cardiac Enzymes 03/02/24 03/02/24 03/03/24 Range/Units 18:09 21:23 07:02 Total Creatine Kinase 67612 H 38741 H D (34-171) U/L Troponin I 0.033 (0.0-0.045) ng/mL Liver Function 03/02/24 03/03/24 Range/Units 18:09 07:02 Total Bilirubin 0.4 0.4 (0.3-1.2) mg/dL AST 296 H 664 H* (0-34) U/L ALT 199 H 230 H (10-49) U/L Alkaline Phosphatase 101 72 D (46-116) U/L Albumin 4.3 3.3 L D (3.4-4.8) gm/dL Urine 03/02/24 Range/Units 18:26 Urine Color Lt-Yellow (Lt Yel-Yel) Urine Clarity Clear (Clear/Hazy) Urine pH 6.0 (5.0-7.0) Ur Specific [place] 1.015 (1.001-1.035) Urine Protein 1+ A (Neg - Trace) Urine Glucose (UA) Negative (Negative) ABG Interpretation ABG results: 03/02/24 03/02/24 03/02/24 19:00 21:46 22:45 ABG pH 7.04 L* 7.13 L* 7.16 L* ABG pCO2 56 H 55 H 54 H ABG pO2 323 H 64 L D 62 L ABG HCO3 15 L 18 L 19 L ABG O2 Saturation 100 H 86 L 86 L ABG Base Excess -16 L -11 L -10 L 03/03/24 03/03/24 03/03/24 01:03 03:21 05:10 ABG pH 7.17 L* 7.18 L* 7.19 L* ABG pCO2 55 H 54 H 52 H ABG pO2 61 L 60 L 63 L ABG HCO3 20 20 20 ABG O2 Saturation 86 L 87 L 89 L ABG Base Excess -9 L -9 L -8 L 03/03/24 08:38 ABG pH 7.16 L* ABG pCO2 53 H ABG pO2 64 L ABG HCO3 19 L ABG O2 Saturation 90 L ABG Base Excess -10 L Assessment and Plan Additional Assessment & Plan Additional Plan: # Coffee-ground hematemesis # Hypotension patient on 2 pressors at the moment norepinephrine and vasopressin # Mechanically ventilated with endotracheal intubation Plan Consent obtained from the family for fiberoptic esophagogastroduodenoscopy with possible therapeutic intervention under intravenous moderate sedation scheduled for tomorrow By that time patient will be more stable and hopefully off the pressors Continue IV Protonix Serial CBC and transfuse as necessary Thank you very much for the opportunity to partake in the care of this patient Other medical problems include the following # Diabetes mellitus type 1 # Essential hypertension # Recent CVA # Dementia
[2024-03-03 09:57] LABS: Lactate (Lactic Acid) 3.7 mMol/L (0.4-2.0)
[2024-03-03 10:04] LABS: Hematocrit 37.9 % (41.0-53.0)
[2024-03-03 10:15] LABS: Reflex Lactate? Y
--- NOTE | 2024-03-03 10:29 | PD.RESPRO ---
Documentation for date of: 03/03/24 Subjective Subjective Interval history: 03/03/2024; patient was seen and examined by bedside, sedated and intubated on assist-control, mechanically ventilated AC/VC with TV/RR 485/32 on FiO2/PEEP 90%/10. Patient has oliguria with UOP around 10cc/hr for since yesterday, CBC was noted for mild drop in Hgb to 12, CMP was noted for K 5, HCO3 16.5, CR 2.7, glucose of 423, lactate decreased to 3, AST 665/ALT 230, troponin 0.85, T.CK 32 600. Consent obtained for central line insertion, RIJ catheter was placed and vasopressin was added to achieve MAP goal> 65. Patient has worsening hepatic/renal function in the setting of cardiac arrest, and shock. Will continue patient on vasopressors to maintain MAP goal, monitor renal/hepatic functions, started Hydrchortisone 50mg q6hr, and was given one dose of Bumetanide 2mg ivp x1 as patient has not been having urinary output for the last few hours,, will continue to monitor ins and outs, avoid renally toxic medications and adjust meds according to renal function, will also follow LFTs. Consult to nephrology was placed and recommendations to start patient on hemodialysis were made, discussed with patient's who is the decision maker for patient after which she decided not to proceed with hemodialysis as patient was originally DNR/DNI and did not want any aggressive interventions. Gastroenterology were also consulted for hematemesis while continuing patient on pantoprazole drip pending further recs, continue patient on vancomycin and Zosyn pending cultures and MRSA screen, will de-escalate antibiotics as warranted. Exam Vital Signs Temp Pulse Resp BP Pulse Ox O2 Del Method FiO2 99.3 F 88 4 L 124/65 93 L Mechanical Ventilation 90 03/03/24 07:15 03/03/24 10:00 03/03/24 02:15 03/03/24 10:00 03/03/24 10:00 03/03/24 10:00 03/03/24 10:00 Narrative Exam General: Morbidly obese, sedated and mechanically ventilated. HEENT: Atraumatic, miotic bilaterally but reactive to light, dry mucous membranes, ET tube in place. Chest: Symmetrical, and with equal expansion, no deformity and no crepitus. CVS: S1 and S2 present, Regular rate and rhythm, No murmurs, rubs or gallops perceived during auscultation. Lungs: Mechanically ventilated, AC/VC on FiO2 90%, Clear to auscultation, no wheezing or crackles, no intercostal or subcostal retraction. Abdomen: Distended, increased bowel sounds, no guarding, no rebound but patient is sedated, positive bowel sounds. Extremities: BLE edema 1+, bl venous stasis noted, with bilateral knee scrapes, peripheral pulses 1+ bilaterally. Skin: Multiple skin wounds on bilateral knees and excoriations, abdominal skin abrasions, bilateral upper extremities ecchymosis and skin tearings. Neuro: Deferred due to sedation. Psych: Deferred due to sedation. Objective Labs 03/04/24 05:00 03/04/24 05:00 Labs: Laboratory Results - last 24 hr 03/02/24 03/02/24 03/02/24 18:09 18:26 19:00 WBC 25.7 H RBC 4.25 L Hgb 12.7 L Hct 40.0 L MCV 94 MCH 29.9 MCHC 31.8 RDW Std Deviation 48.4 H Plt Count 375 Neut % (Auto) 79 Lymph % (Auto) 11 [place] % (Auto) 8 Eos % (Auto) 0 Baso % (Auto) 0 Neut # (Auto) 20.2 H Lymph # (Auto) 2.8 [place] # (Auto) 2.1 H Eos # (Auto) 0.0 Baso # (Auto) 0.1 Immature Gran # (Auto) 0.56 H Absolute Nucleated RBC 0.05 H Immature Gran % 2 H Nucleated RBC % 0 PT 12.4 H INR 1.1 APTT 30.8 Puncture Site Right Radial ABG pH 7.04 L* ABG pCO2 56 H ABG pO2 323 H ABG HCO3 15 L ABG O2 Saturation 100 H ABG Base Excess -16 L FiO2 100 Sodium 134 L Potassium 4.1 Chloride 99 Carbon Dioxide 16.2 L Anion Gap 19 H BUN 26 H Creatinine 2.1 H Estim Creat Clear Calc Not Performed. eGFR 32 L BUN/Creatinine Ratio 12 Glucose 450 H* Estimated Ave Glu mg/dL Hemoglobin A1c Calculated Osmolality 292 Lactic Acid 11.2 H* Calcium 9.4 Corrected Calcium 9.4 Phosphorus Magnesium 2.5 Total Bilirubin 0.4 AST 296 H ALT 199 H Alkaline Phosphatase 101 Total Creatine Kinase Troponin I 0.033 B-Natriuretic Peptide 73 Total Protein 7.0 Albumin 4.3 Globulin 2.7 Albumin/Globulin Ratio 1.6 Lipase 30 Procalcitonin 0.16 Ur Collection Type Clean Catch Urine Color Lt-Yellow Urine Clarity Clear Urine pH 6.0 Ur Specific [place] 1.015 Urine Protein 1+ A Urine Glucose (UA) Negative Urine Ketones Negative Urine Blood Negative Urine Nitrite Negative Urine Bilirubin Negative Urine Urobilinogen (Auto) Negative Ur Leukocyte Esterase Positive Urine RBC 14 H Urine WBC 108 H Ur Squamous Epith Cells < 1 Urine Bacteria None 03/02/24 03/02/24 03/02/24 21:23 21:46 22:45 WBC RBC Hgb Hct MCV MCH MCHC RDW Std Deviation Plt Count Neut % (Auto) Lymph % (Auto) [place] % (Auto) Eos % (Auto) Baso % (Auto) Neut # (Auto) Lymph # (Auto) [place] # (Auto) Eos # (Auto) Baso # (Auto) Immature Gran # (Auto) Absolute Nucleated RBC Immature Gran % Nucleated RBC % PT INR APTT Puncture Site Right Radial Left Radial ABG pH 7.13 L* 7.16 L* ABG pCO2 55 H 54 H ABG pO2 64 L D 62 L ABG HCO3 18 L 19 L ABG O2 Saturation 86 L 86 L ABG Base Excess -11 L -10 L FiO2 100 100 Sodium Potassium Chloride Carbon Dioxide Anion Gap BUN Creatinine Estim Creat Clear Calc eGFR BUN/Creatinine Ratio Glucose Estimated Ave Glu mg/dL Hemoglobin A1c Calculated Osmolality Lactic Acid 7.2 H* Calcium Corrected Calcium Phosphorus 8.3 H Magnesium Total Bilirubin AST ALT Alkaline Phosphatase Total Creatine Kinase 45376 H Troponin I B-Natriuretic Peptide Total Protein Albumin Globulin Albumin/Globulin Ratio Lipase Procalcitonin Ur Collection Type Urine Color Urine Clarity Urine pH Ur Specific [place] Urine Protein Urine Glucose (UA) Urine Ketones Urine Blood Urine Nitrite Urine Bilirubin Urine Urobilinogen (Auto) Ur Leukocyte Esterase Urine RBC Urine WBC Ur Squamous Epith Cells Urine Bacteria 03/03/24 03/03/24 03/03/24 00:45 01:03 03:18 WBC 7.9 D RBC 4.71 Hgb 14.0 14.1 Hct 42.5 43.0 MCV 91 MCH 29.9 MCHC 32.8 RDW Std Deviation 49.6 H Plt Count 361 Neut % (Auto) 84 H Lymph % (Auto) 9 L [place] % (Auto) 6 Eos % (Auto) 0 Baso % (Auto) 0 Neut # (Auto) 6.7 Lymph # (Auto) 0.7 L [place] # (Auto) 0.5 Eos # (Auto) 0.0 Baso # (Auto) 0.0 Immature Gran # (Auto) 0.03 H Absolute Nucleated RBC 0.00 Immature Gran % 0 Nucleated RBC % 0 PT INR APTT Puncture Site Left Radial ABG pH 7.17 L* ABG pCO2 55 H ABG pO2 61 L ABG HCO3 20 ABG O2 Saturation 86 L ABG Base Excess -9 L FiO2 100 Sodium Potassium Chloride Carbon Dioxide Anion Gap BUN Creatinine Estim Creat Clear Calc eGFR BUN/Creatinine Ratio Glucose Estimated Ave Glu mg/dL 169 H Hemoglobin A1c 7.5 H Calculated Osmolality Lactic Acid 5.5 H* 3.4 H Calcium Corrected Calcium Phosphorus Magnesium Total Bilirubin AST ALT Alkaline Phosphatase Total Creatine Kinase Troponin I B-Natriuretic Peptide Total Protein Albumin Globulin Albumin/Globulin Ratio Lipase Procalcitonin Ur Collection Type Urine Color Urine Clarity Urine pH Ur Specific [place] Urine Protein Urine Glucose (UA) Urine Ketones Urine Blood Urine Nitrite Urine Bilirubin Urine Urobilinogen (Auto) Ur Leukocyte Esterase Urine RBC Urine WBC Ur Squamous Epith Cells Urine Bacteria 03/03/24 03/03/24 03/03/24 03:21 05:10 07:02 WBC RBC Hgb Hct MCV MCH MCHC RDW Std Deviation Plt Count Neut % (Auto) Lymph % (Auto) [place] % (Auto) Eos % (Auto) Baso % (Auto) Neut # (Auto) Lymph # (Auto) [place] # (Auto) Eos # (Auto) Baso # (Auto) Immature Gran # (Auto) Absolute Nucleated RBC Immature Gran % Nucleated RBC % PT 12.4 H INR 1.1 APTT 20.9 L Puncture Site Left Radial Left Radial ABG pH 7.18 L* 7.19 L* ABG pCO2 54 H 52 H ABG pO2 60 L 63 L ABG HCO3 20 20 ABG O2 Saturation 87 L 89 L ABG Base Excess -9 L -8 L FiO2 100 100 Sodium 134 L Potassium 5.0 D Chloride 105 Carbon Dioxide 16.5 L Anion Gap 13 BUN 34 H Creatinine 2.7 H D Estim Creat Clear Calc 32.4 L eGFR 24 L BUN/Creatinine Ratio 13 Glucose 423 H* Estimated Ave Glu mg/dL Hemoglobin A1c Calculated Osmolality 293 Lactic Acid 2.5 H Calcium 7.9 L D Corrected Calcium 8.5 Phosphorus 6.7 H Magnesium 1.8 Total Bilirubin 0.4 AST 664 H* ALT 230 H Alkaline Phosphatase 72 D Total Creatine Kinase 56019 H D Troponin I B-Natriuretic Peptide Total Protein 5.6 L Albumin 3.3 L D Globulin 2.3 Albumin/Globulin Ratio 1.4 Lipase Procalcitonin Ur Collection Type Urine Color Urine Clarity Urine pH Ur Specific [place] Urine Protein Urine Glucose (UA) Urine Ketones Urine Blood Urine Nitrite Urine Bilirubin Urine Urobilinogen (Auto) Ur Leukocyte Esterase Urine RBC Urine WBC Ur Squamous Epith Cells Urine Bacteria 03/03/24 03/03/24 03/03/24 08:38 09:24 09:24 WBC RBC Hgb 12.0 L D Hct 37.9 L MCV MCH MCHC RDW Std Deviation Plt Count Neut % (Auto) Lymph % (Auto) [place] % (Auto) Eos % (Auto) Baso % (Auto) Neut # (Auto) Lymph # (Auto) [place] # (Auto) Eos # (Auto) Baso # (Auto) Immature Gran # (Auto) Absolute Nucleated RBC Immature Gran % Nucleated RBC % PT INR APTT Puncture Site Right Brachial ABG pH 7.16 L* ABG pCO2 53 H ABG pO2 64 L ABG HCO3 19 L ABG O2 Saturation 90 L ABG Base Excess -10 L FiO2 90 Sodium Potassium Chloride Carbon Dioxide Anion Gap BUN Creatinine Estim Creat Clear Calc eGFR BUN/Creatinine Ratio Glucose Estimated Ave Glu mg/dL Hemoglobin A1c Calculated Osmolality Lactic Acid 3.7 H Cancelled Calcium Corrected Calcium Phosphorus Magnesium Total Bilirubin AST ALT Alkaline Phosphatase Total Creatine Kinase Troponin I B-Natriuretic Peptide Total Protein Albumin Globulin Albumin/Globulin Ratio Lipase Procalcitonin Ur Collection Type Urine Color Urine Clarity Urine pH Ur Specific [place] Urine Protein Urine Glucose (UA) Urine Ketones Urine Blood Urine Nitrite Urine Bilirubin Urine Urobilinogen (Auto) Ur Leukocyte Esterase Urine RBC Urine WBC Ur Squamous Epith Cells Urine Bacteria ABG Interpretation ABG results: 03/02/24 03/02/24 03/02/24 19:00 21:46 22:45 ABG pH 7.04 L* 7.13 L* 7.16 L* ABG pCO2 56 H 55 H 54 H ABG pO2 323 H 64 L D 62 L ABG HCO3 15 L 18 L 19 L ABG O2 Saturation 100 H 86 L 86 L ABG Base Excess -16 L -11 L -10 L 03/03/24 03/03/24 03/03/24 01:03 03:21 05:10 ABG pH 7.17 L* 7.18 L* 7.19 L* ABG pCO2 55 H 54 H 52 H ABG pO2 61 L 60 L 63 L ABG HCO3 20 20 20 ABG O2 Saturation 86 L 87 L 89 L ABG Base Excess -9 L -9 L -8 L 03/03/24 08:38 ABG pH 7.16 L* ABG pCO2 53 H ABG pO2 64 L ABG HCO3 19 L ABG O2 Saturation 90 L ABG Base Excess -10 L Quality Measures Quality Measures VTE prophylaxis Advance care planning discussed with:: spouse and legal surragate Assessment & Plan Assessment Current Active Medications: Generic Name Dose Route Start Last Admin Trade Name Freq PRN Reason Stop Dose Admin Acetaminophen 650 mg 03/02/24 20:52 Acetaminophen 325 Mg Tablet PO 04/01/24 20:51 Q6H PRN Fever >100.4 - pain 1-3 Dextrose 25 ml 03/02/24 21:13 Dextrose 50%-Water Inj 50 Ml Syringe IV 04/01/24 21:12 Q15MIN PRN BG 50-70 responsive npo pt Dextrose 50 ml 03/02/24 21:13 Dextrose 50%-Water Inj 50 Ml Syringe IV 04/01/24 21:12 Q15MIN PRN BG <50 OR BG <70 & pt unresponsive Glucagon 1 mg 03/02/24 21:13 Glucagon Inj 1 Mg Vial IM Q15MIN PRN BG <70, and no IV access Pantoprazole Sodium 80 mg in 100 mls @ 10 mls/hr 03/02/24 18:23 03/03/24 04:31 Protonix/Ns 80mg Iv Premix IV 03/05/24 16:22 10 mls/hr Q10H VLAD Administration Norepinephrine Bitartrate 16 mg in 250 mls @ 6.379 mls/hr 03/02/24 19:06 03/03/24 09:52 Levophed In Ns 16mg/250ml IV 04/01/24 19:05 0.44 mcg/kg/min .Q24H PRN 56.132 mls/hr PER protocol Titration Protocol 0.05 MCG/KG/MIN Piperacillin/Tazobactam/Dextrose 3.375 gm in 50 mls @ 12.5 mls/hr 03/03/24 06:30 03/03/24 06:29 Zosyn IV 03/10/24 06:29 12.5 mls/hr Q8HR VLAD Administration Fentanyl Citrate 2,500 mcg in 250 mls @ 2.5 mls/hr 03/03/24 00:40 Sublimaze Inj 2,500 Mcg/250 Ml Bag IV 03/07/24 23:37 .Q24H PRN PER PROTOCOL Protocol 25 MCG/HR Propofol 1,000 mg in 100 mls @ 4.082 mls/hr 03/03/24 04:50 03/03/24 09:45 Diprivan Ivpb IV 04/02/24 00:59 20 mcg/kg/min .Q24H PRN 16.329 mls/hr PER PROTOCOL Titration Protocol 5 MCG/KG/MIN Vasopressin/Sodium Chloride 20 unit in 100 mls @ 9 mls/hr 03/03/24 07:18 03/03/24 07:30 Vasostrict/Ns Ivpb IV 04/02/24 07:17 0.03 unit/min .Q11H7M PRN 9 mls/hr PER PROTOCOL Administration Protocol 0.03 UNIT/MIN Vancomycin HCl 250 mls @ 120 mls/hr 03/03/24 22:00 Vancomycin/Water 1250 Mg Ivpb IV 03/10/24 21:59 DAILY@2200 [facility] Insulin Human Lispro 0 unit 03/03/24 01:47 03/03/24 06:12 Insulin Lispro (Admelog) 1 Unit/0.01 Ml Unit SC 04/02/24 00:00 16 unit Q6HR VLAD Administration Protocol Ondansetron HCl 4 mg 03/02/24 20:52 Ondansetron Inj 2 Mg/Ml Inj 2 Ml IV 04/01/24 20:51 Q6H PRN NAUSEA OR VOMITING Protocol Pharmacy Consult 1 each 03/03/24 09:00 Vancomycin Pharmacy To Dose 1 Each Each IV 04/02/24 08:59 QDAY PRN CONSULT Plan 73-year-old man with PMHx of recent CVA, IDDM II, HTN, dementia, and morbid obesity admitted to ICU post cardiac arrest. Patient noted to have ischemic hepatic and renal failure in setting of cardiogenic/ patient is intubated, on Levophed, Vasopressin, and Hydrocortisone, sistance. 03/03/2024; patient was seen and examined by bedside, sedated and intubated on assist-control, mechanically ventilated AC/VC with TV/RR 485/32 on FiO2/PEEP 90%/10. Patient has oliguria with UOP around 10cc/hr for since yesterday, CBC was noted for mild drop in Hgb to 12, CMP was noted for K 5, HCO3 16.5, CR 2.7, glucose of 423, lactate decreased to 3, AST 665/ALT 230, troponin 0.85, T.CK 32 600. Consent obtained for central line insertion, RIJ catheter was placed and vasopressin was added to achieve MAP goal> 65. Patient has worsening hepatic/renal function in the setting of cardiac arrest, and shock. Will continue patient on vasopressors to maintain MAP goal, monitor renal/hepatic functions, started Hydrchortisone 50mg q6hr, and was given one dose of Bumetanide 2mg ivp x1 as patient has not been having urinary output for the last few hours,, will continue to monitor ins and outs, avoid renally toxic medications and adjust meds according to renal function, will also follow LFTs. Consult to nephrology was placed and recommendations to start patient on hemodialysis were made, discussed with patient's who is the decision maker for patient after which she decided not to proceed with hemodialysis as patient was originally DNR/DNI and did not want any aggressive interventions. Gastroenterology were also consulted for hematemesis while continuing patient on pantoprazole drip pending further recs, continue patient on vancomycin and Zosyn pending cultures and MRSA screen, will de-escalate antibiotics as warranted. VP SITE: #Acute encephalopathy #Dementia CVA [address] head was negative for acute hemorrhage or midline shift Patient currently off sedation but remains encephalopathic. Continue to monitor patient's condition with every 4 neurochecks. CVS: #S/p cardiac arrest #Undifferentiated shock Possibly secondary to septic shock vs hypovolemic vs acute hypoxic respiratory failure Patient arrived to the emergency department at 18:02 with cardiac arrest and intubated at 18:07 ER physician noted a large amount of coffee-ground emesis coming from the stomach. ROSC was achieved 18:11 after 2 rounds of CPR. Per patient unknown downtime Troponins initially negative, repeat troponins 0.85 Continue to trend troponins Maintain MAP above 65 Follow-up echocardiogram Follow-up Bcx/ Ucx Follow-up CBC/ CMP #History of hypertension Hold home medications in the setting of shock PULM: #Acute hypoxic respiratory failure In the setting of shock Chest x-ray showed mild enlargement cardiac contour and pulmonary vascular congestion ABG pH 7.16, pCO2 53, HCO3 16 Tidal volume increased to 485, and RR 18. Follow-up repeat ABG Follow-up ABG daily Follow-up chest x-ray in the morning GI: #Acute hepatic failure In setting of shock/ ischemia No prior history of liver disease. Maintain MAP> 65. Trend daily LFTs Avoid hepatotoxic medications as possible. #Acute GI bleed Hematemesis secondary to upper GI bleed. Patient noted to be on DAPT likely 2/2 recent CVA. Hold antiplatelts and avoid anticoagulation. Patient started on protonix drip F/U H/H in PM. Follow up daily CBC. Plan for EGD following day (03/04) GI consulted, recs appreciated. RENAL: #KEEGAN (Renal 2/2 ATN) #Rhabdomyolysis #Oliguria #Lactic acidosis 2/2 acute liver injury/KEEGAN #Non anion gap metabolic acidosis #Anion gap metabolic acidosis---Resolved #Hyperphosphatemia In setting of cardiac arrest. Strict in and outs Renally dose medications. Avoid nephrotoxic drugs. Patient started on IV fluids stopped as patient did not tolerated. Patient requires hemodialysis but family/decision maker do not want to consume aggressive measures. Lactate Q3hrs Follow-up CMP Follow-up electrolytes and replete as necessary. Nephrology consulted, recommendations appreciated. ENDO: #Hyperglycemia #DKA---Resolved. #Diabetes mellitus type 2 HgbA1c 7.5 ISS Follow-up renal panel Q4 HEME/ONC: Stable ID: #Leukocytosis Reactive in setting of cardiac arrest. On admission WBCs 25.7 but trended down to 7.9 . Pro-Thien negative, CXR showed bilateral infiltration consistent with vascular congestion per radiology. UA showed pyuria and LE positive. Patient started on IV vancomycin and Zosyn (03/02/- Follow-up MRSA screen Follow-up Bcx/ Ucx Follow-up sputum cx Follow-up daily CBC. MSK: #Rhabdomyolysis Managment per renal section. SKIN: #Multiple skin abrasions and excoriations No signs of cellulits. Will continue to monitor. Wound care FEN: N.p.o. Lines: RIJ, PIV DVT prophylaxis: SCD, no chemical prophylaxis in setting of G.I bleed. GI prophylaxis: Protonix drip CODE STATUS: DNR Patient's plan of care discussed with attending Dr. Zion Hanna, PGY-3
--- NOTE | 2024-03-03 10:33 | PD.INTPROG ---
Documentation for date of: 03/03/24 Subjective Subjective Interval history: This is a 73-year-old male who is status post arrest with ROSC achieved yesterday evening. He was brought to the ICU intubated requiring vasopressor support. He was noted to have rhabdo and initially started on fluids however he did not tolerate therefore these were stopped. He has had minimal urinary output. Per his he is DNR DNI. Discussed the need for dialysis this morning given his renal failure and rhabdo and she stated that he did not want any aggressive invasive care. Consent was obtained for central line. He has been afebrile. He was on propofol and fentanyl for sedation because he was bucking the vent on arrival. Will attempt to wean down sedation to evaluate his neurological status Critical Care Note Critical care time (min.): 80 Exam Vital Signs Temp Pulse Resp BP Pulse Ox O2 Del Method FiO2 99.3 F 88 4 L 124/65 93 L Mechanical Ventilation 90 03/03/24 07:15 03/03/24 10:00 03/03/24 02:15 03/03/24 10:00 03/03/24 10:00 03/03/24 10:00 03/03/24 10:00 Narrative Exam General-intubated, sedated, obese, unresponsive HEENT-normocephalic, atraumatic, sclera icteric, pupils small but reactive, ET tube and OG tube in place, oral mucosa is hydrated Chest-coarse breath sounds bilaterally, heart rate regular and rhythmic, no increased work of breathing Abdomen-obese, soft, nontender, bowel sounds present, no rebound or guarding Extremities-patient has abrasions over bilateral knees likely from prolonged downtime, pulses weak, no clubbing, no mottling Drips levo vaso fent prop Vent AC VC Physical Exam Completion Physical Exam Complete?: Yes 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 Labs 03/03/24 09:24 03/03/24 07:02 Labs: Laboratory Results - last 24 hr 03/02/24 03/02/24 03/02/24 18:09 18:26 19:00 WBC 25.7 H RBC 4.25 L Hgb 12.7 L Hct 40.0 L MCV 94 MCH 29.9 MCHC 31.8 RDW Std Deviation 48.4 H Plt Count 375 Neut % (Auto) 79 Lymph % (Auto) 11 [place] % (Auto) 8 Eos % (Auto) 0 Baso % (Auto) 0 Neut # (Auto) 20.2 H Lymph # (Auto) 2.8 [place] # (Auto) 2.1 H Eos # (Auto) 0.0 Baso # (Auto) 0.1 Immature Gran # (Auto) 0.56 H Absolute Nucleated RBC 0.05 H Immature Gran % 2 H Nucleated RBC % 0 PT 12.4 H INR 1.1 APTT 30.8 Puncture Site Right Radial ABG pH 7.04 L* ABG pCO2 56 H ABG pO2 323 H ABG HCO3 15 L ABG O2 Saturation 100 H ABG Base Excess -16 L FiO2 100 Sodium 134 L Potassium 4.1 Chloride 99 Carbon Dioxide 16.2 L Anion Gap 19 H BUN 26 H Creatinine 2.1 H Estim Creat Clear Calc Not Performed. eGFR 32 L BUN/Creatinine Ratio 12 Glucose 450 H* Estimated Ave Glu mg/dL Hemoglobin A1c Calculated Osmolality 292 Lactic Acid 11.2 H* Calcium 9.4 Corrected Calcium 9.4 Phosphorus Magnesium 2.5 Total Bilirubin 0.4 AST 296 H ALT 199 H Alkaline Phosphatase 101 Total Creatine Kinase Troponin I 0.033 B-Natriuretic Peptide 73 Total Protein 7.0 Albumin 4.3 Globulin 2.7 Albumin/Globulin Ratio 1.6 Lipase 30 Procalcitonin 0.16 Ur Collection Type Clean Catch Urine Color Lt-Yellow Urine Clarity Clear Urine pH 6.0 Ur Specific [place] 1.015 Urine Protein 1+ A Urine Glucose (UA) Negative Urine Ketones Negative Urine Blood Negative Urine Nitrite Negative Urine Bilirubin Negative Urine Urobilinogen (Auto) Negative Ur Leukocyte Esterase Positive Urine RBC 14 H Urine WBC 108 H Ur Squamous Epith Cells < 1 Urine Bacteria None 03/02/24 03/02/24 03/02/24 21:23 21:46 22:45 WBC RBC Hgb Hct MCV MCH MCHC RDW Std Deviation Plt Count Neut % (Auto) Lymph % (Auto) [place] % (Auto) Eos % (Auto) Baso % (Auto) Neut # (Auto) Lymph # (Auto) [place] # (Auto) Eos # (Auto) Baso # (Auto) Immature Gran # (Auto) Absolute Nucleated RBC Immature Gran % Nucleated RBC % PT INR APTT Puncture Site Right Radial Left Radial ABG pH 7.13 L* 7.16 L* ABG pCO2 55 H 54 H ABG pO2 64 L D 62 L ABG HCO3 18 L 19 L ABG O2 Saturation 86 L 86 L ABG Base Excess -11 L -10 L FiO2 100 100 Sodium Potassium Chloride Carbon Dioxide Anion Gap BUN Creatinine Estim Creat Clear Calc eGFR BUN/Creatinine Ratio Glucose Estimated Ave Glu mg/dL Hemoglobin A1c Calculated Osmolality Lactic Acid 7.2 H* Calcium Corrected Calcium Phosphorus 8.3 H Magnesium Total Bilirubin AST ALT Alkaline Phosphatase Total Creatine Kinase 15236 H Troponin I B-Natriuretic Peptide Total Protein Albumin Globulin Albumin/Globulin Ratio Lipase Procalcitonin Ur Collection Type Urine Color Urine Clarity Urine pH Ur Specific [place] Urine Protein Urine Glucose (UA) Urine Ketones Urine Blood Urine Nitrite Urine Bilirubin Urine Urobilinogen (Auto) Ur Leukocyte Esterase Urine RBC Urine WBC Ur Squamous Epith Cells Urine Bacteria 03/03/24 03/03/24 03/03/24 00:45 01:03 03:18 WBC 7.9 D RBC 4.71 Hgb 14.0 14.1 Hct 42.5 43.0 MCV 91 MCH 29.9 MCHC 32.8 RDW Std Deviation 49.6 H Plt Count 361 Neut % (Auto) 84 H Lymph % (Auto) 9 L [place] % (Auto) 6 Eos % (Auto) 0 Baso % (Auto) 0 Neut # (Auto) 6.7 Lymph # (Auto) 0.7 L [place] # (Auto) 0.5 Eos # (Auto) 0.0 Baso # (Auto) 0.0 Immature Gran # (Auto) 0.03 H Absolute Nucleated RBC 0.00 Immature Gran % 0 Nucleated RBC % 0 PT INR APTT Puncture Site Left Radial ABG pH 7.17 L* ABG pCO2 55 H ABG pO2 61 L ABG HCO3 20 ABG O2 Saturation 86 L ABG Base Excess -9 L FiO2 100 Sodium Potassium Chloride Carbon Dioxide Anion Gap BUN Creatinine Estim Creat Clear Calc eGFR BUN/Creatinine Ratio Glucose Estimated Ave Glu mg/dL 169 H Hemoglobin A1c 7.5 H Calculated Osmolality Lactic Acid 5.5 H* 3.4 H Calcium Corrected Calcium Phosphorus Magnesium Total Bilirubin AST ALT Alkaline Phosphatase Total Creatine Kinase Troponin I B-Natriuretic Peptide Total Protein Albumin Globulin Albumin/Globulin Ratio Lipase Procalcitonin Ur Collection Type Urine Color Urine Clarity Urine pH Ur Specific [place] Urine Protein Urine Glucose (UA) Urine Ketones Urine Blood Urine Nitrite Urine Bilirubin Urine Urobilinogen (Auto) Ur Leukocyte Esterase Urine RBC Urine WBC Ur Squamous Epith Cells Urine Bacteria 12/03/03/24 03/03/24 03:21 05:10 07:02 WBC RBC Hgb Hct MCV MCH MCHC RDW Std Deviation Plt Count Neut % (Auto) Lymph % (Auto) [place] % (Auto) Eos % (Auto) Baso % (Auto) Neut # (Auto) Lymph # (Auto) [place] # (Auto) Eos # (Auto) Baso # (Auto) Immature Gran # (Auto) Absolute Nucleated RBC Immature Gran % Nucleated RBC % PT 12.4 H INR 1.1 APTT 20.9 L Puncture Site Left Radial Left Radial ABG pH 7.18 L* 7.19 L* ABG pCO2 54 H 52 H ABG pO2 60 L 63 L ABG HCO3 20 20 ABG O2 Saturation 87 L 89 L ABG Base Excess -9 L -8 L FiO2 100 100 Sodium 134 L Potassium 5.0 D Chloride 105 Carbon Dioxide 16.5 L Anion Gap 13 BUN 34 H Creatinine 2.7 H D Estim Creat Clear Calc 32.4 L eGFR 24 L BUN/Creatinine Ratio 13 Glucose 423 H* Estimated Ave Glu mg/dL Hemoglobin A1c Calculated Osmolality 293 Lactic Acid 2.5 H Calcium 7.9 L D Corrected Calcium 8.5 Phosphorus 6.7 H Magnesium 1.8 Total Bilirubin 0.4 AST 664 H* ALT 230 H Alkaline Phosphatase 72 D Total Creatine Kinase 20819 H D Troponin I B-Natriuretic Peptide Total Protein 5.6 L Albumin 3.3 L D Globulin 2.3 Albumin/Globulin Ratio 1.4 Lipase Procalcitonin Ur Collection Type Urine Color Urine Clarity Urine pH Ur Specific [place] Urine Protein Urine Glucose (UA) Urine Ketones Urine Blood Urine Nitrite Urine Bilirubin Urine Urobilinogen (Auto) Ur Leukocyte Esterase Urine RBC Urine WBC Ur Squamous Epith Cells Urine Bacteria 03/03/24 03/03/24 03/03/24 08:38 09:24 09:24 WBC RBC Hgb 12.0 L D Hct 37.9 L MCV MCH MCHC RDW Std Deviation Plt Count Neut % (Auto) Lymph % (Auto) [place] % (Auto) Eos % (Auto) Baso % (Auto) Neut # (Auto) Lymph # (Auto) [place] # (Auto) Eos # (Auto) Baso # (Auto) Immature Gran # (Auto) Absolute Nucleated RBC Immature Gran % Nucleated RBC % PT INR APTT Puncture Site Right Brachial ABG pH 7.16 L* ABG pCO2 53 H ABG pO2 64 L ABG HCO3 19 L ABG O2 Saturation 90 L ABG Base Excess -10 L FiO2 90 Sodium Potassium Chloride Carbon Dioxide Anion Gap BUN Creatinine Estim Creat Clear Calc eGFR BUN/Creatinine Ratio Glucose Estimated Ave Glu mg/dL Hemoglobin A1c Calculated Osmolality Lactic Acid 3.7 H Cancelled Calcium Corrected Calcium Phosphorus Magnesium Total Bilirubin AST ALT Alkaline Phosphatase Total Creatine Kinase Troponin I B-Natriuretic Peptide Total Protein Albumin Globulin Albumin/Globulin Ratio Lipase Procalcitonin Ur Collection Type Urine Color Urine Clarity Urine pH Ur Specific [place] Urine Protein Urine Glucose (UA) Urine Ketones Urine Blood Urine Nitrite Urine Bilirubin Urine Urobilinogen (Auto) Ur Leukocyte Esterase Urine RBC Urine WBC Ur Squamous Epith Cells Urine Bacteria Assessment & Plan Additional Assessment Additional Assessment: In brief this is a 73-year-old male admitted to the ICU with acute hypoxic respiratory failure and shock status postcardiac arrest a/p [employer] sedated, turn off sedation to eval underlying neuro status. maintain euthermia CV Shock-multifactorial, will obtain bedside echo, central line in place therefore will transduce CVP and checking SVO 2. Currently on broad-spectrum antibiotics. Started on hydrocortisone 50 mg IV every 6 for the possibility of refractory septic shock. All cultures obtained and still pending Resp Acute hypoxic/hypercapnic respiratory failure-patient's FiO2 requirements are currently 90% with a respiratory acidosis noted on ABG. Will adjust vent as able, attempt to maintain plateau pressures below 30, follow-up on repeat ABG and chest x-ray Pulmonary edema-trial bumex however pts is virtually anuric at this point in time Renal Mixed metabolic and respiratory acidosis-unable to adjust ventilator to increased CO2 elimination without a plateau pressure greater than 30 and increasing risk for barotrauma, anion gap metabolic acidosis is also present. On arrival the patient's lactate was 11 currently it is down to 3.7 Acute kidney injury-patient has 5 to 10 cc of urinary output at this point in time. This is in the setting of shock as well as rhabdo. The patient's family do not want aggressive care and do not want dialysis at this moment in time. Rhabdomyolysis-unable to receive additional fluids due to pulmonary edema and FiO2 requirement. Patient has no urinary output at this point in time. Patient is not a candidate for dialysis as this would be against him and his family's wishes. Current CK is 32,000 Hyponatremia-mild monitor GI GI bleed-currently on a Protonix drip, follow-up on repeat H&H, dark coffee grounds being drained from the patient's OG tube Shock liver-patient's LFTs continue to increase from arrival this is likely in the setting of cardiac arrest and ongoing shock, follow-up on repeat LFTs, check an ultrasound. Endo Hyperglycemia-sliding scale of insulin Heme Anemia-in the setting of what appears to be a GI bleed -Follow-up on repeat H&H DVT prophylaxis-on hold due to GI bleed ID Cultures all taken and pending patient is on broad-spectrum antibiotics Case discussed with ICU team Discussed with family at bedside Labs, imaging and records reviewed Approximately 80 critical care minutes required for evaluation, exam, review, intervention and discussion with formulation of plan for this critically ill patient s/p cardiac arrest with respiratory failure at high risk for further and ongoing decompensation Provider Notation Provider Notation: Although this document has been carefully reviewed, there may still be some phonetic and other typographical errors. These errors are purely grammatical due to imperfections in the software program and should not be construed in any way to compromise the substance of the patient's medical care during this visit. Thank you for the opportunity and privilege in assisting you with this patient's care and management.
[2024-03-03 11:04] LABS: Base Excess, Venous -10 (-3-3); O2 Saturation, Venous 82 % (96-97); PCO2, Venous 54 mmHg (36-56); PO2, Venous 50 mmHg (15-58); pH, Venous 7.16 (7.33-7.66)
[2024-03-03 11:11] LABS: Troponin I 0.853 ng/mL (0.0-0.045)
[2024-03-03] MEDS: HYDROCORTISONE SOD SUCC INJ 100 MG VIAL 50 MG IV ×3 (11:19→23:36)
[2024-03-03] MEDS: BUMETANIDE INJ 0.25 MG/ML VIAL 4 ML 2 MG IVP (11:41)
[2024-03-03] MEDS: Norepinephrine/NS 16mg/250ml 16 MG/250 ML BAG 45.926 MG IV (12:00)
[2024-03-03 12:50] LABS: Reflex Lactate? Y
[2024-03-03 13:10] LABS: Lactate (Lactic Acid) 3.1 mMol/L (0.4-2.0)
[2024-03-03 15:38] LABS: Lactic Acid, 3 HR 2.4 mMol/L (0.4-2.0)
[2024-03-03 15:55] LABS: Troponin I 0.938 ng/mL (0.0-0.045)
[2024-03-03 15:57] LABS: Reflex Lactate? Y
[2024-03-03 18:37] LABS: Creatine Kinase 30974 U/L (34-171)
[2024-03-03] MEDS: Norepinephrine/NS 16mg/250ml 16 MG/250 ML BAG 20.412 MG IV (19:35)
[2024-03-03] MEDS: VANCOMYCIN/WATER 1250 MG IVPB 250 ML 120 MG IV (22:06)
[2024-03-03 23:44] LABS: Troponin I 0.843 ng/mL (0.0-0.045)
[2024-03-04] VITALS (50 sets, daily range): BP systolic 74–183; BP diastolic 46–141; PULSE 94–118; RESP 16–85; TEMP 37.2–37.7; O2SAT 91–98; BMI 50.8
[2024-03-04 04:34] LABS: Base Excess -7 (-3-3); HCO3 19 mEq/L (20-26); Inspired Oxygen, FIO2 80 %; O2 Saturation 97 % (91-98); PCO2 40 mmHg (32.0-48.0); PO2 94 mmHg (83-108); pH, Arterial 7.28 (7.35-7.45)
[2024-03-04 04:37] LABS: Allen Test Performed/OK; Puncture Site Right Radial
[2024-03-04 06:02] LABS: Basophils % (Auto) 0 % (0-2.5); Eosinophils # (Auto) 0.6 Thou/mm3 (0.0-0.5); Eosinophils % (Auto) 3 % (0-10); Hemoglobin 11.4 g/dL (13.5-16.0); Immature Granulocytes % (Auto) 2 % (0-0); Immature Granulocytes Auto 0.38 Thou/mm3 (0.00-0.00); Lymphocytes % (Auto) 5 % (10-50); Mean Corpuscular HGB Conc 33.5 g/dl (31.0-37.0); Mean Corpuscular Volume 90 fL (80-100); Monocytes # (Auto) 1.1 Thou/mm3 (0.0-0.8); Monocytes % (Auto) 6 % (0-12); Neutrophils % (Auto) 84 % (37-80); Nucleated Red Blood Cell % 0 /100 WBC (0); Platelet Count 230 Thou/mm3 (140-440); RDW Standard Deviation 47.9 fL (35.1-43.9); White Blood Count 19.1 Thou/mm3 (3.8-10.6)
[2024-03-04] MEDS: INSULIN LISPRO (AdmeLOG) 1 UNIT/0.01 ML UNIT SC (06:19)
[2024-03-04] MEDS: PIPER/TAZO 3.375 GM 3.375 GM/50 ML BAG IV (06:21)
[2024-03-04] MEDS: HYDROCORTISONE SOD SUCC INJ 100 MG VIAL 50 MG IV (06:21)
[2024-03-04 06:38] LABS: Alanine Aminotransferase 225 U/L (10-49); Albumin, Serum 3.4 gm/dL (3.4-4.8); Albumin/Globulin Ratio 1.3 (1.2-2.2); Alkaline Phosphatase 69 U/L (46-116); Anion Gap 12 (7-16); Aspartate Amino Transferase 483 U/L (0-34); BUN/Creatinine Ratio 12 Ratio (12-20); Bilirubin,Total 0.7 mg/dL (0.3-1.2); Blood Urea Nitrogen 51 mg/dL (9-23); Calcium 7.8 mg/dL (8.3-10.6); Calcium (Corrected) 8.3 mg/dL (8.5-10.1); Carbon Dioxide 19.5 mMol/L (20.0-31.0); Chloride 103 mMol/L (98-107); Creatine Kinase 28904 U/L (34-171); Creatinine (Component) 4.4 mg/dL (0.6-1.3); Estimated Creatinine Clearance 19.9 mL/min (>60); Globulin 2.6 gm/dL (2.3-3.5); Glucose 358 mg/dL (74-106); Magnesium 1.8 mg/dL (1.6-2.6); Osmolality,Calculated 295 (275-295); Phosphorous 6.1 mg/dL (2.4-5.1); Sodium 134 mMol/L (136-145); eGFR 13 See Note
[2024-03-04 06:46] LABS: Potassium 6.6 mMol/L (3.4-5.1)
[2024-03-04] MEDS: SOD POLYSTYRENE SULFON SUSP 15 GM/60 ML BTL 30 GM PO (07:03)
[2024-03-04] MEDS: Norepinephrine/NS 16mg/250ml 16 MG/250 ML BAG 12.757 MG IV (10:10)
[2024-03-04] MEDS: LORazepam 2 MG/ML VIAL 1 MG IVP (11:16)
[2024-03-04] MEDS: SCOPOLAMINE 1 MG TDSY TOP (11:16)
[2024-03-04] MEDS: fentaNYL 2,500 MCG/250 ML BAG 2,500 MCG/250 ML BAG 12.5 MCG IV (11:17)
--- NOTE | 2024-03-04 11:53 | PC.NURSE ---
PT ruled out for organ donation
[2024-03-04] MEDS: fentaNYL CIT INJ 50 mCg/ML AMP 2ML IVP (12:33)
--- NOTE | 2024-03-04 12:57 | DES_ITS ---
<Statement entered by John Jimenez MD - 03/06/24 08:38> I saw and evaluated the patient. I reviewed the resident?s note and agree with findings and plan as documented in the resident?s note. Documentation for date of: 03/04/24 Pronouncement Note Date and Time of Date of : 03/04/24 Time of : 12:54 PCOD Preliminary cause of : Cardiopulmonary arrest Summary Additional details: Called to see patient for asystole on monitoring analyst and unresponsiveness. Patient was placed on comfort care prior, on exam the patient was unresponsive, no spontaneous movement was observed, patient did not respond to verbal or noxious stimuli. Auscultated absent heart and breath sounds for more than 2 minutes. Peripheral pulses are absent. Pupils are fixed, dilated, and corneal reflex was absent bilaterally. Patient pronounced at 12:54. Family was present at bedside. Internal medicine summary Admitted on 03/02/2024 on 03/04/2024 12:54 CODE STATUS: DNR with comfort care measures Causes of : 1.? Cardiopulmonary arrest 2.? Acute hypoxic respiratory failure Additional Data Confirmation of : no pulse, no respirations, no heart sounds, pupils fixed and dilated and other (Absence of corneal reflexes) Family: at bedside Attending/PCP notified?: Yes Attending physician: John Jimenez MD Was code activated?: No Autopsy requested?: No cigarette package examiner notified?: No Organ bank notified?: No Advance directives: Yes
--- NOTE | 2024-03-04 13:09 | DES_ITS ---
<Statement entered by John Jimenez MD - 03/06/24 08:30> TOTAL TIME: 45MINUTES ON DIRECT MEDICAL CARE, MANAGEMENT - COORDINATION AND COUNSELING > 50% OF TOTAL TIME Documentation for date of: 03/04/24 Summary Date and Time Date of admission: 03/02/24 20:50 Date of : 03/04/24 Time of : 12:45 Summary Details: 73-year-old man with PMHx of recent CVA, IDDM II, HTN, dementia, and morbid obesity admitted to ICU post cardiac arrest where he was started on IV Levo/Vasopressin/ along with Hydrochortisone, and mechanical ventilation. Hepatic and renal failure in setting of cardiogenic shock, Rhabdomyelisis in setting of long immobilization period were noted. NSTEMI, patient was rescuscitated by EMS in presence of who forgot to mention that patient's code status was DNR until after patient was intubated, patient was started on Bumix but renal functions continued to decline, patient's general condition was explained in details to patient's and children, stated clear instructions not to start patient on hemodialysis as those were patient's wishes, patient's condition continued deteriorate and repeat goals of care discussion was held with family after which decision was made to initiate comfort care measures for patient. Shortly after initiation of comfort care measures patient went into asystole, patient's was examined for heartbeat/respiration for 2 minutes, none were heard, patient had nonreactive dilated pupils bilaterally with absent corneal reflex. Patient was pronounced at 12:54 PM in presence of family by bedside and condolences were offered by ICU team. #Acute encephalopathy #Dementia #CVA #S/p cardiac arrest #Undifferentiated shock #Acute hypoxic respiratory failure #Acute hepatic failure #Acute GI bleed #History of hypertension #KEEGAN (Renal 2/2 ATN) #Rhabdomyolysis #Oliguria #Lactic acidosis 2/2 acute liver injury/KEEGAN #Non anion gap metabolic acidosis #Anion gap metabolic acidosis---Resolved #Hyperphosphatemia #Hyperglycemia #DKA---Resolved. #Diabetes mellitus type 2 #Leukocytosis #Multiple skin abrasions and excoriations Additional Data Confirmation of as documented by pronouncing clinician: no pulse, no respirations, no heart sounds, pupils fixed and dilated and other (Absence of corneal reflexs) Family: at bedside Attending/PCP notified?: Yes Attending physician: John Jimenez MD Was code activated?: No Autopsy requested?: No greige goods examiner notified?: No Organ bank notified?: No Advance directives: No Hospice patient?: No Visit Providers Provider Primary care physician: Alfred Mcneil MD Diagnosis PCOD Cause of : Cardiopulmonary arrest Discharge Plan Plan Patient Disposition: Prescriptions/Referrals Referrals: Alfred Mcneil MD [Primary Care Provider] - Patient/Caregiver Discharge Instructions Print Language: Green[place]ic
--- NOTE | 2024-03-04 14:12 | ESPR_ITS ---
Documentation for date of: 03/04/24 Subjective Subjective Interval history: Mr. Goode is a 73-year-old male with a previous medical history of type 2 diabetes, hypertension, dementia, recent TIA 1 month ago who was brought in by ambulance 03/02/24 at 18:01 after cardiac arrest. Due to patient's condition history was gathered through chart review. He received [address] doses of [address]inephrine on the way, 2 doses in the ED. Was intubated in the ED, during intubation large amount of coffee-ground emesis was noted. ROSC was achieved after 2 rounds of CPR 18:11 PM. Per his patient spends prolonged time in the bathroom since 11 AM, at around 1730 p.m. she was found him lying on the floor facedown conscious and speaking. She was unsuccessful in lifting him, called paramedics. When they tried to turn him he became pale, cyanotic, CPR was started. Exact time of prolonged laying is unknown. ED course: Blood pressure 138/61, heart rate 127, saturating 100% on mechanical ventilation. Labs show WBC 25.7, hemoglobin 12.7, creatinine 2.1, BUN 26, glucose 450, lactic acid 11.2, AST 296, ALT 199, creatinine kinase 17,087. Urine analysis showed protein 1+, positive leukocyte esterase, RBC 14, WBC 108. Chest x-ray showed mild heart failure, head CT negative for acute hemorrhage, mass effect or midline shift. Patient was started on pantoprazole drip for possible GI bleed, Zosyn IV, fentanyl propofol for sedation, Levophed. Received 2 L of fluid in the ED. Patient was admitted to the ICU for postcardiac arrest and acute hypoxic respiratory failure management and treatment. 03/03/24: Patient was seen and examined at the bedside in the ICU. Blood pressure 94/51, heart rate 87, vasopressin was added to Levophed. Continues to be on mechanical ventilation, sedated. Urine output since admission is 263 mL, patient has been anuric in the last 6 hours. Labs showed sodium 134, potassium 5, bicarb 16.5, BUN 34, creatinine 2.7, EGFR 24. Kidney functions worsened compared to yesterday, baseline creatinine 0.9. Creatinine kinase levels 32,670, AST 664, ALT 230. Chest Xray showed extensive pneumonia and/or pulmonary edema. According to the family, patient is DNR and his family would not like to proceed with dialysis at this moment. 03/04/24: Patient was seen and examined at the bedside in the ICU in the morning. Patient continued to be anuric. Labs showed sodium 134, potassium 6.6, bicarb 19.3, BUN 51, creatinine 4.4, EGFR 13. Kidney functions worsened compared to yesterday, baseline creatinine 0.9. Creatinine kinase levels 13853, AST 483, ALT 225. Later in the day, ICU team had a discussion regarding the poor prognosis and they decided to transition to the comfort care and was pronounced at 12:54 PM. Exam Vital Signs Temp Pulse Resp BP Pulse Ox O2 Del Method FiO2 99.9 F 94 16 118/72 91 L Mechanical Ventilation 80 03/04/24 08:01 03/04/24 12:44 03/04/24 12:44 03/04/24 11:17 03/04/24 11:17 03/04/24 10:00 03/04/24 11:17 Narrative Exam Gen: Well-developed and well-nourished. BMI 50.9. HEENT: Orotracheal intubation noted CVS: normal S1 and S2. RRR. No M/R/G. Resp: CTA B/L. No rhonchi, rales, crackles or wheezing. Abd: soft, non-tender, non-distended. BS+ in all 4 quadrants. MSK: No edema. Venous stasis dermatitis. Bilateral upper extremities ecchymoses. Neuro: Examination restricted due to sedation and mechanical ventilation. Psych: Impossible to assess, sedated. Objective Labs 03/04/24 05:00 03/04/24 05:00 Labs: Laboratory Results - last 24 hr 03/03/24 03/03/24 03/03/24 15:30 15:35 23:10 WBC RBC Hgb Hct MCV MCH MCHC RDW Std Deviation Plt Count Neut % (Auto) Lymph % (Auto) [place] % (Auto) Eos % (Auto) Baso % (Auto) Neut # (Auto) Lymph # (Auto) [place] # (Auto) Eos # (Auto) Baso # (Auto) Immature Gran # (Auto) Absolute Nucleated RBC Immature Gran % Nucleated RBC % Puncture Site ABG pH ABG pCO2 ABG pO2 ABG HCO3 ABG O2 Saturation ABG Base Excess FiO2 Sodium Potassium Chloride Carbon Dioxide Anion Gap BUN Creatinine Estim Creat Clear Calc eGFR BUN/Creatinine Ratio Glucose Calculated Osmolality Lactic Acid 2.4 H Calcium Corrected Calcium Phosphorus Magnesium Total Bilirubin AST ALT Alkaline Phosphatase Total Creatine Kinase 74078 H D Troponin I 0.938 H* 0.843 H* Total Protein Albumin Globulin Albumin/Globulin Ratio 03/04/24 03/04/24 04:20 05:00 WBC 19.1 H D RBC 3.80 L Hgb 11.4 L Hct 34.0 L MCV 90 MCH 30.0 MCHC 33.5 RDW Std Deviation 47.9 H Plt Count 230 D Neut % (Auto) 84 H Lymph % (Auto) 5 L [place] % (Auto) 6 Eos % (Auto) 3 Baso % (Auto) 0 Neut # (Auto) 16.0 H Lymph # (Auto) 1.0 [place] # (Auto) 1.1 H Eos # (Auto) 0.6 H Baso # (Auto) 0.0 Immature Gran # (Auto) 0.38 H Absolute Nucleated RBC 0.00 Immature Gran % 2 H Nucleated RBC % 0 Puncture Site Right Radial ABG pH 7.28 L D ABG pCO2 40 D ABG pO2 94 D ABG HCO3 19 L ABG O2 Saturation 97 ABG Base Excess -7 L FiO2 80 Sodium 134 L Potassium 6.6 H* D Chloride 103 Carbon Dioxide 19.5 L Anion Gap 12 BUN 51 H Creatinine 4.4 H* D Estim Creat Clear Calc 19.9 L eGFR 13 L* BUN/Creatinine Ratio 12 Glucose 358 H D Calculated Osmolality 295 Lactic Acid Calcium 7.8 L Corrected Calcium 8.3 L Phosphorus 6.1 H Magnesium 1.8 Total Bilirubin 0.7 AST 483 H ALT 225 H Alkaline Phosphatase 69 Total Creatine Kinase 20046 H D Troponin I Total Protein 6.0 Albumin 3.4 Globulin 2.6 Albumin/Globulin Ratio 1.3 ABG Interpretation ABG results: 03/02/24 03/02/24 03/02/24 19:00 21:46 22:45 ABG pH 7.04 L* 7.13 L* 7.16 L* ABG pCO2 56 H 55 H 54 H ABG pO2 323 H 64 L D 62 L ABG HCO3 15 L 18 L 19 L ABG O2 Saturation 100 H 86 L 86 L ABG Base Excess -16 L -11 L -10 L VBG pH VBG pCO2 VBG pO2 VBG Base Excess 03/03/24 03/03/24 03/03/24 01:03 03:21 05:10 ABG pH 7.17 L* 7.18 L* 7.19 L* ABG pCO2 55 H 54 H 52 H ABG pO2 61 L 60 L 63 L ABG HCO3 20 20 20 ABG O2 Saturation 86 L 87 L 89 L ABG Base Excess -9 L -9 L -8 L VBG pH VBG pCO2 VBG pO2 VBG Base Excess 03/03/24 03/03/24 03/04/24 08:38 09:24 04:20 ABG pH 7.16 L* 7.28 L D ABG pCO2 53 H 40 D ABG pO2 64 L 94 D ABG HCO3 19 L 19 L ABG O2 Saturation 90 L 97 ABG Base Excess -10 L -7 L VBG pH 7.16 L VBG pCO2 54 VBG pO2 50 VBG Base Excess -10 L Quality Measures Quality Measures VTE prophylaxis Advance care planning discussed with:: spouse Assessment & Plan Assessment Current Active Medications: Generic Name Dose Route Start Last Admin Trade Name Freq PRN Reason Stop Dose Admin Artificial Tears 1 drop 03/04/24 11:06 Artificial Tears 225 Drop/15 Ml Btl BOTH EYES 04/03/24 11:05 Q4HR PRN Dry eyes Norepinephrine Bitartrate 16 mg in 250 mls @ 6.379 mls/hr 03/02/24 19:06 03/04/24 12:00 Levophed In Ns 16mg/250ml IV 04/01/24 19:05 0 mcg/kg/min .Q24H PRN 0 mls/hr PER protocol Titration Protocol 0.05 MCG/KG/MIN Piperacillin/Tazobactam/Dextrose 3.375 gm in 50 mls @ 12.5 mls/hr 03/03/24 06:30 03/04/24 06:21 Zosyn IV 03/10/24 06:29 12.5 mls/hr Q8HR VLAD Administration Vasopressin/Sodium Chloride 20 unit in 100 mls @ 9 mls/hr 03/03/24 07:18 03/04/24 12:00 Vasostrict/Ns Ivpb IV 04/02/24 07:17 Infused .[id number] PRN Titration PER PROTOCOL Protocol 0.03 UNIT/MIN Fentanyl Citrate 2,500 mcg in 250 mls @ 17.5 mls/hr 03/04/24 11:53 Sublimaze Inj 2,500 Mcg/250 Ml Bag IV 03/09/24 11:52 .[id number] PRN Per Protocol Protocol 175 MCG/HR Lorazepam 1 mg 03/04/24 12:00 03/04/24 11:16 Lorazepam 2 Mg/Ml Vial IVP 03/09/24 11:59 1 mg Q2HR VLAD Administration Ondansetron HCl 4 mg 03/04/24 11:07 Ondansetron Odt 4 Mg Tabrap PO 04/03/24 11:06 Q2HR PRN NAUSEA OR VOMITING Scopolamine 1 mg 03/04/24 11:15 03/04/24 11:16 Scopolamine 1 Mg Tdsy TOP 04/03/24 11:14 1 mg Q3D VLAD Administration Plan The patient is a 73-year-old male with a previous medical history of type 2 diabetes, hypertension, dementia, recent TIA 1 month ago who was brought in by ambulance 03/02/24 at 18:01 after cardiac arrest. Due to patient's condition history was gathered through chart review. He received 2 doses of epinephrine on the way, 2 doses in the ED. Was intubated in the ED, during intubation large amount of coffee-ground emesis was noted. ROSC was achieved after 2 rounds of CPR 18:11 PM. Per his patient spends prolonged time in the bathroom since 11 AM, at around 1730 p.m. she was found him lying on the floor facedown conscious and speaking. She was unsuccessful in lifting him, called paramedics. When they tried to turn him he became pale, cyanotic, CPR was started. Exact time of prolonged laying is unknown. #KEEGAN #ATN #Anion gap metabolic acidosis, improving #Respiratory acidosis #Lactic acidosis, improving #Rhabdomyolysis Patient has been anuric this morning, likely. Most likely in the setting of the setting of shock, rhabdomyolysis(Pigment nephropathy) and ischemic injury in cardiac arrest. 03/03/24 Lactic acid down trended to 2.7, anion gap 13, bicarb 16.5 creatinine 2.7, BUN 34[place] [address]. ABG pH 7.16 pCO2 53 pO2 64 HCO3 19 O2 sat 90. Fluids are on hold for now due to concern for pulmonary edema. Plan: - patient's family decided not to proceed with renal replacement therapy and transition to comfort care #Acute encephalopathy #Dementia #S/p cardiac arrest #Undifferentiated shock #History of hypertension #Acute hypoxic respiratory failure #Acute GI bleed #Transaminitis #Diabetes mellitus type 2 #Leukocytosis #Multiple skin abrasions and excoriations ?comfort care Plan of care discussed with attending Dr. Caban. Hermelinda Owusu MD, PGY 1. Attending Provider Attestation/Addendum Patient seen and examined with resident physician . Note reviewed, agree with findings and recommendations. Patient currently seen in ICU. On ventilator. Admitted with cardiorespiratory arrest and shock. Noted to have ongoing with KEEGAN. Noted family declined dialysis at this point. Suspect patient in ATN with anuria. Family considering comfort care/withdrawal. Prognosis remains guarded. Spoke to ICU team.
== END 2024-03-04 12:54 | disposition expired | DRG 208 ==
LOC: SERX 19:34 → SERHOLD 21:31 → S2SX 03-03 08:57 → SERHOLD 03-04 13:41 → S2SX 03-04 13:41
PROVIDERS: Internal Medicine; Student in an Organized Health Care Education/Training Program; Admitting Provider Internal Medicine; Emergency Provider Emergency Medicine; PCP Family Medicine; Visit Provider Internal Medicine
DX: J96.01 Acute respiratory failure with hypoxia (principal); K72.00 Acute and subacute hepatic failure without coma; N17.0 Acute kidney failure with tubular necrosis; G93.40 Encephalopathy, unspecified; K92.0 Hematemesis; M62.82 Rhabdomyolysis; E87.1 Hypo-osmolality and hyponatremia; Z68.43 Body mass index [BMI] 50.0-59.9, adult; J96.02 Acute respiratory failure with hypercapnia; E87.4 Mixed disorder of acid-base balance; E87.20 Acidosis, unspecified; R57.1 Hypovolemic shock; F03.90 Unspecified dementia, unspecified severity, without behavioral disturbance, psychotic disturbance, mood disturbance, and anxiety; E66.01 Morbid (severe) obesity due to excess calories; I11.0 Hypertensive heart disease with heart failure; I50.9 Heart failure, unspecified; D64.9 Anemia, unspecified; E83.39 Other disorders of phosphorus metabolism; R29.6 Repeated falls; R57.0 Cardiogenic shock; I87.8 Other specified disorders of veins; E11.65 Type 2 diabetes mellitus with hyperglycemia; S30.811A Abrasion of abdominal wall, initial encounter; S80.212A Abrasion, left knee, initial encounter; I46.2 Cardiac arrest due to underlying cardiac condition; S80.211A Abrasion, right knee, initial encounter; Z66 Do not resuscitate; Z86.73 Personal history of transient ischemic attack (TIA), and cerebral infarction without residual deficits; Z79.82 Long term (current) use of aspirin; Z51.5 Encounter for palliative care; Z79.4 Long term (current) use of insulin; Z79.02 Long term (current) use of antithrombotics/antiplatelets; Z79.899 Other long term (current) drug therapy; X58.XXXA Exposure to other specified factors, initial encounter
CPT/HCPCS: 36415; 36600; 70450; 71045; 80053; 81001; 82010; 82550; 82803; 83036; 83605; 83690; 83735; 83880; 84100; 84145; 84484; 85014; 85018; 85025; 85610; 85730; 87040; 87081; 87086; 87205; 92950; 93005; 93225; 94002; 94003; 96374; 99291; J1720; J1815; J1940; J2060; J2251; J2470; J2543; J2598; J2704; J3010; J3371; J3372; J3490; J7040; J7120; A9270; J3370